=== PATIENT | female | born 1990 | race American Indian/Alaskan Native ===

== ENCOUNTER 2020-11-13 12:53 | Inpatient (IN) | payer OTHER ==
[2020-11-13] MEDS ORDERED: MAGNESIUM SULFATE 4 GM/100 ML BAG IV ONE ×2 (13:48→16:21)
[2020-11-13] MEDS ORDERED: CALCIUM GLUCONATE 1000 MG/10 ML INJ IV ONE (13:48)
[2020-11-13] MEDS ORDERED: SIMETHICONE 80 MG CHEW TAB PO PRN (13:53)
[2020-11-13] MEDS ORDERED: ONDANSETRON 4 MG/2 ML INJ IV PRN (13:53)
[2020-11-13] MEDS ORDERED: SODIUM CHLORIDE NASAL SPRAY 44ML NS PRN (13:53)
[2020-11-13] MEDS ORDERED: MAGNESIUM HYDROXIDE (MOM) ORAL LIQD UDC PO PRN (13:53)
[2020-11-13] MEDS ORDERED: DOCUSATE SODIUM 100 MG CAP PO PRN (13:53)
[2020-11-13] MEDS ORDERED: BETAMET ACET/BETAMET NA PH 6 MG/ML INJ 5 ML MDV IM SCH (14:00)
[2020-11-13 14:34] LABS: Bilirubin,Urine NEG (Negative); Blood,Urine NEG (Negative); Color,Urine Amber (Yellow); Hyaline Casts,Urine 3 /LPF; Mucus,Urine 3+ /HPF; Urobilinogen,Urine < 2.0 mg/dL (<2.0)
[2020-11-13 14:35] LABS: Protein,Urine >500 mg/dL (Negative)
[2020-11-13] MEDS: LACTATED RINGERS 1,000 ML IV SCH (16:37)
[2020-11-13 16:41] LABS: Alanine Aminotransferase 31 units/L (7-56); Uric Acid 5.3 mg/dL (3.5-7.6)
--- NOTE | 2020-11-13 16:53 | Ultrasound Report ---
ULTRASOUND OBSTETRIC INDICATION / CLINICAL INFORMATION: IUP at 29 wks, gestational hypertension. Clinical Gestational Age (GA) in weeks, days: 29 weeks 3 days TECHNIQUE: Transabdominal. COMPARISON: None available. FINDINGS: Single intrauterine . Examination is not tailored to evaluate detailed anatomy. Biparietal Diameter = 7.2 cm = 28, 5 weeks, days Head Circumference = 27.0 cm = 29, 0 weeks, days Abdominal Circumference = 24.0 cm = 28, 1 weeks, days Femur Length = 5.5 cm = 29, 0 weeks, days Average Ultrasound Age (AUA) = 28, 3 weeks, days Heart Rate: 162 beats per minute. Estimated Weight in grams (if calculated): 1197 g Position: cephalic. Placenta: Anterior right lateral, grade 1 and free of the os. Amniotic Fluid Volume: normal Amniotic Fluid Index (BORA) in cm (if calculated): 7.9 cm. Maternal Adnexa: Not visualized. IMPRESSION: 1. Single, living intrauterine with estimated sonographic age of 28, 3 weeks, days. 2. No significant sonographic abnormality. Scribed by: Mary Campa RDMS, RVT Scribed: 11/13/2020 2:26 PM I have reviewed the images, agree with this report, and edited this report as needed. Signer Name: Tin De Santiago MD Signed: 11/13/2020 4:49 PM Workstation Name: [id number]
[2020-11-13 16:59] LABS: Hematocrit 42.4 % (30.3-42.9); Hemoglobin 14.2 gm/dl (10.1-14.3); Mean Corpuscular HGB Conc 34 % (30-34); Mean Corpuscular Volume 81 fl (79-97); Platelet Count 343 K/mm3 (140-440); Red Blood Count 5.23 M/mm3 (3.65-5.03)
[2020-11-13 18:19] LABS: Basophils % (Auto) 0.6 % (0.0-1.8); Eosinophils % (Auto) 0.5 % (0.0-4.3); Hematocrit 37.3 % (30.3-42.9); Hemoglobin 12.1 gm/dl (10.1-14.3); Lymphocytes # (Auto) 1.7 K/mm3 (1.2-5.4); Lymphocytes % (Auto) 24.9 % (13.4-35.0); Mean Corpuscular HGB Conc 33 % (30-34); Mean Corpuscular Volume 82 fl (79-97); Monocytes # (Auto) 0.6 K/mm3 (0.0-0.8); Monocytes % (Auto) 8.6 % (0.0-7.3); Platelet Count 361 K/mm3 (140-440); Red Blood Count 4.57 M/mm3 (3.65-5.03); Red Cell Distribution Width 14.5 % (13.2-15.2)
[2020-11-13] MEDS: hydrALAZINE 20 MG/1 ML INJ IV PRN ×2 (18:37→19:52)
--- NOTE | 2020-11-13 21:29 | History and Physical Report ---
History of Present Illness Date of examination: 11/13/20 Date of admission: 11/13/20 14:54 Chief complaint: sent from the office for elevated blood pressure History of present illness: Pt is a 30 year old -[place] MARINA [birth year] at 29w3d presents from the office with finding of elevated blood pressure 160-170/80s in the office. She denies headache, blurry vision, right upper quadrant pain, scotomata presently. She has had care at [facility] complicated by obesity, glucose intolerance with collection of 3 hr glucose tolerance test at today's office visit, limited anatomy scan, and Rubella Equivocal status. Her GBS status is unknown. Past History Past Medical History: GERD Past Surgical History: no surgical history Family/Genetic History: diabetes, hypertension, stroke Social history: no significant social history - Obstetrical History Expected Date of Delivery: 01/26/21 Actual Gestation: 29 Week(s) 3 Day(s) : 2 Para: 1 Hx # Term Pregnancies: 1 Number of Pregnancies: 0 Spontaneous Abortions: 0 Induced : 0 Number of Living Children: 1 Medications and Allergies Allergies Allergy/AdvReac Type Severity Reaction Status Date / Time No Known Allergies Allergy Verified 11/23/13 18:11 Home Medications Medication Instructions Recorded Confirmed Last Taken Type Pnv with Ca,No.71/Iron/FA 1 tab PO DAILY 11/23/13 11/13/20 11/13/20 08:00 History [ Vitamin Tablet] 1 HYDROcodone/APAP 5-325 [[place] 1 each PO Q6H PRN #30 tablet 11/25/13 Unknown Rx 5-325 mg TAB] Ibuprofen [Motrin 600 MG tab] 600 mg PO Q6H PRN #30 tablet 11/25/13 Unknown Rx Vit-Fe Fumar-FA [ 1 each PO QDAY #30 tablet 11/25/13 11/13/20 11/13/20 08:00 Rx Vitamin] 1 Active Meds: Active Medications Acetaminophen (Acetaminophen 325 Mg Tab) 650 mg PO Q4H PRN PRN Reason: Pain MILD(1-3)/Fever >100.5/OGLESBY Betamethasone Acet/Betameth SodPhos (Betamet Acet/Betamet Na Ph 6 Mg/Ml Inj 5 Ml Mdv) 12 mg IM Q24H MARCUS Stop: 11/14/20 14:01 Last Admin: 11/13/20 16:36 Dose: 12 mg Documented by: Docusate Sodium (Docusate Sodium 100 Mg Cap) 100 mg PO Q12H PRN PRN Reason: Constipation Hydralazine HCl (Hydralazine 20 Mg/1 Ml Inj) 5 mg IV Q30MIN PRN PRN Reason: Hypertension Last Admin: 11/13/20 19:52 Dose: 5 mg Documented by: Lactated Ringer's (Lactated Ringers) 1,000 mls @ 125 mls/hr IV DIRECT MARCUS Last Admin: 11/13/20 16:37 Dose: 125 mls/hr Documented by: Magnesium Sulfate (Magnesium Sulfate 40gm/1000ml) 40 gm in 1,000 mls @ 50 mls/hr IV DIRECT MARCUS Labetalol HCl (Labetalol 20 Mg/4 Ml Inj) 20 mg IV ONCE PRN PRN Reason: Hypertension Magnesium Hydroxide (Magnesium Hydroxide (Mom) Oral Liqd Udc) 30 ml PO QHS PRN PRN Reason: Laxative Effect Multivitamins/Iron/Calcium ( [id number]-Te Fumarate-Folic Acid Vit Tab) 1 each PO QDAY MARCUS Ondansetron HCl (Ondansetron 4 Mg/2 Ml Inj) 4 mg IV Q6H PRN PRN Reason: Nausea And Vomiting Simethicone (Simethicone 80 Mg Chew Tab) 80 mg PO Q6H PRN PRN Reason: Gas pain Sodium Chloride (Sodium Chloride Nasal [place] 44ml) 2 spray NS Q4H PRN PRN Reason: Congestion Review of Systems All systems: negative - Vital Signs Vital signs: Vital Signs Pulse BP 86 169/98 11/13/20 13:38 11/13/20 13:38 Temp Pulse Resp BP Pulse Ox 98.0 F 111 H 20 145/83 98 11/13/20 19:17 11/13/20 21:08 11/13/20 19:17 11/13/20 21:04 11/13/20 21:08 - Physical Exam Breasts: Positive: deferred Abdomen: Positive: soft (obese, gravid ). Negative: tenderness Uterus: Positive: enlarged (gravid ) Extremities: Positive: normal - Obstetrical FHR: auscultation normal Uterine Contraction Monitor Mode: External Uterine Contraction Pattern: Absent Uterine Tone Measurement Phase: Resting Results Result Diagrams: 11/13/20 17:51 11/13/20 15:50 Abnormal lab results 11/13/20 11/13/20 11/13/20 Range/Units 13:50 15:50 15:50 RBC 5.23 H (3.65-5.03) M/mm3 MCH 27 L (28-32) pg [place] % (Auto) (0.0-7.3) % Creatinine 0.5 L (0.6-1.2) mg/dL AST 69 H (5-40) units/L Lactate Dehydrogenase 635 H (91-180) units/L Ur Specific [place] 1.038 H (1.003-1.030) Urine WBC (Auto) 11.0 H (0.0-6.0) /HPF U Epithel Cells (Auto) 19.0 H (0-13.0) /HPF 11/13/20 Range/Units 17:51 RBC (3.65-5.03) M/mm3 MCH 27 L (28-32) pg [place] % (Auto) 8.6 H (0.0-7.3) % Creatinine (0.6-1.2) mg/dL AST (5-40) units/L Lactate Dehydrogenase (91-180) units/L Ur Specific [place] (1.003-1.030) Urine WBC (Auto) (0.0-6.0) /HPF U Epithel Cells (Auto) (0-13.0) /HPF All other labs normal. Assessment and Plan A: IUP at 29w3d Gestational Hypertension vs Preeclampsia Obesity Glucose intolerance- 3 hr 100g GTT results pending after collection earlier today in office Rubella Equivocal status GBS unknown P: Admit to antepartum service Serial BPs, PIH labs Magnesium Sulfate for seizure prophylaxis and neuroprotection Begin Betamethasone course for lung maturity Ultrasound for EFW, BORA 24 hour urine collection MFM consult in the AM Closely monitor maternal and status
[2020-11-14] MEDS: ACETAMINOPHEN 325 MG TAB PO PRN ×2 (02:01→10:14)
--- NOTE | 2020-11-14 07:27 | Progress Note ---
Assessment and Plan A: IUP at 29w4d Gestational Hypertension vs Preeclampsia Obesity Glucose intolerance Rubella Equivocal status GBS unknown P: Admit to antepartum service Serial BPs, PIH labs Magnesium Sulfate for seizure prophylaxis and neuroprotection Betamethasone course for lung maturity 24 hour urine collection to be complete at 1700 pm MFM consult today Closely monitor maternal and status Subjective - Subjective Date of service: 11/14/20 Principal diagnosis: IUP at 29w4d, gestational hypertension Interval history: Pt reports a headache overnight that resolved with Tylenol, but she attribute it to not eating food recently. Patient reports: movement normal, no new complaints, no loss of fluid, no vaginal bleeding, no contractions Objective - Vital Signs Vital Signs: Vital Signs - 12hr 11/13/20 11/13/20 11/13/20 19:28 19:33 19:34 Pulse Rate 84 85 83 Respiratory Rate Blood Pressure 167/102 O2 Sat by Pulse 99 99 Oximetry 11/13/20 11/13/20 11/13/20 19:38 19:43 19:48 Pulse Rate 95 H 89 82 Respiratory Rate Blood Pressure 174/105 O2 Sat by Pulse 99 99 99 Oximetry 11/13/20 11/13/20 11/13/20 19:52 19:53 19:56 Pulse Rate 84 83 Respiratory Rate Blood Pressure 174/105 167/98 O2 Sat by Pulse 98 Oximetry 11/13/20 11/13/20 11/13/20 19:58 20:00 20:03 Pulse Rate 85 86 Respiratory 20 Rate Blood Pressure O2 Sat by Pulse 99 99 99 Oximetry 11/13/20 11/13/20 11/13/20 20:04 20:08 20:13 Pulse Rate 88 89 95 H Respiratory Rate Blood Pressure 157/94 O2 Sat by Pulse 99 97 Oximetry 11/13/20 11/13/20 11/13/20 20:18 20:23 20:28 Pulse Rate 90 94 H 91 H Respiratory Rate Blood Pressure O2 Sat by Pulse 98 98 98 Oximetry 11/13/20 11/13/20 11/13/20 20:33 20:34 20:38 Pulse Rate 104 H 99 H 95 H Respiratory Rate Blood Pressure 147/93 O2 Sat by Pulse 97 97 Oximetry 11/13/20 11/13/20 11/13/20 20:43 20:48 20:53 Pulse Rate 96 H 125 H 87 Respiratory Rate Blood Pressure O2 Sat by Pulse 97 97 97 Oximetry 11/13/20 11/13/20 11/13/20 20:58 21:03 21:04 Pulse Rate 108 H 104 H 97 H Respiratory Rate Blood Pressure 145/83 O2 Sat by Pulse 99 98 Oximetry 11/13/20 11/13/20 11/13/20 21:08 21:13 21:18 Pulse Rate 111 H 110 H 100 H Respiratory Rate Blood Pressure O2 Sat by Pulse 98 99 99 Oximetry 11/13/20 11/13/20 11/13/20 21:23 21:28 21:33 Pulse Rate 93 H 114 H 100 H Respiratory Rate Blood Pressure O2 Sat by Pulse 99 99 99 Oximetry 11/13/20 11/13/20 11/13/20 21:34 21:38 21:43 Pulse Rate 101 H 101 H 99 H Respiratory Rate Blood Pressure 164/89 O2 Sat by Pulse 98 99 Oximetry 11/13/20 11/13/20 11/13/20 21:48 21:53 21:58 Pulse Rate 94 H 98 H 101 H Respiratory Rate Blood Pressure O2 Sat by Pulse 99 99 99 Oximetry 11/13/20 11/13/20 11/13/20 22:03 22:04 22:08 Pulse Rate 94 H 99 H 98 H Respiratory Rate Blood Pressure 145/87 O2 Sat by Pulse 99 99 Oximetry 11/13/20 11/13/20 11/13/20 22:13 22:18 22:23 Pulse Rate 92 H 98 H 97 H Respiratory Rate Blood Pressure O2 Sat by Pulse 99 99 99 Oximetry 11/13/20 11/13/20 11/13/20 22:28 22:33 22:34 Pulse Rate 96 H 95 H 91 H Respiratory Rate Blood Pressure 144/88 O2 Sat by Pulse 98 98 Oximetry 11/13/20 11/13/20 11/13/20 22:38 22:43 22:48 Pulse Rate 90 90 94 H Respiratory Rate Blood Pressure O2 Sat by Pulse 98 98 99 Oximetry 11/13/20 11/13/20 11/13/20 22:53 22:58 23:01 Pulse Rate 89 88 86 Respiratory Rate Blood Pressure O2 Sat by Pulse 99 99 88 Oximetry 11/13/20 11/13/20 11/13/20 23:03 23:04 23:08 Pulse Rate 94 H 93 H 90 Respiratory Rate Blood Pressure 149/82 O2 Sat by Pulse 98 100 Oximetry 11/13/20 11/13/20 11/13/20 23:13 23:18 23:23 Pulse Rate 98 H 92 H 90 Respiratory Rate Blood Pressure O2 Sat by Pulse 99 99 100 Oximetry 11/13/20 11/13/20 11/13/20 23:28 23:33 23:34 Pulse Rate 96 H 97 H 97 H Respiratory Rate Blood Pressure 160/92 O2 Sat by Pulse 99 99 Oximetry 11/13/20 11/13/20 11/13/20 23:38 23:43 23:48 Pulse Rate 95 H 101 H 89 Respiratory Rate Blood Pressure O2 Sat by Pulse 99 98 99 Oximetry 11/13/20 11/13/20 11/14/20 23:53 23:58 00:03 Pulse Rate 105 H 98 H 88 Respiratory Rate Blood Pressure O2 Sat by Pulse 99 98 99 Oximetry 11/14/20 11/14/20 11/14/20 00:04 00:08 00:13 Pulse Rate 88 101 H 89 Respiratory Rate Blood Pressure 146/87 O2 Sat by Pulse 98 98 Oximetry 11/14/20 11/14/20 11/14/20 00:18 00:23 00:28 Pulse Rate 97 H 100 H 102 H Respiratory Rate Blood Pressure O2 Sat by Pulse 98 98 98 Oximetry 11/14/20 11/14/20 11/14/20 00:33 00:34 00:38 Pulse Rate 90 89 88 Respiratory Rate Blood Pressure 139/84 O2 Sat by Pulse 97 97 Oximetry 11/14/20 11/14/20 11/14/20 00:43 00:48 00:53 Pulse Rate 88 94 H 92 H Respiratory Rate Blood Pressure O2 Sat by Pulse 98 96 97 Oximetry 11/14/20 11/14/20 11/14/20 00:58 01:03 01:04 Pulse Rate 101 H 97 H 92 H Respiratory Rate Blood Pressure 145/81 O2 Sat by Pulse 99 98 Oximetry 11/14/20 11/14/20 11/14/20 01:08 01:13 01:18 Pulse Rate 93 H 90 99 H Respiratory Rate Blood Pressure O2 Sat by Pulse 98 98 98 Oximetry 11/14/20 11/14/20 11/14/20 01:23 01:28 01:33 Pulse Rate 101 H 87 95 H Respiratory Rate Blood Pressure O2 Sat by Pulse 100 98 98 Oximetry 11/14/20 11/14/20 11/14/20 01:34 01:38 01:43 Pulse Rate 91 H 86 86 Respiratory Rate Blood Pressure 142/81 O2 Sat by Pulse 99 98 Oximetry 11/14/20 11/14/20 11/14/20 01:48 01:53 01:58 Pulse Rate 87 89 97 H Respiratory Rate Blood Pressure O2 Sat by Pulse 98 98 99 Oximetry 11/14/20 11/14/20 11/14/20 02:03 02:04 02:08 Pulse Rate 89 88 91 H Respiratory Rate Blood Pressure 142/81 O2 Sat by Pulse 99 99 Oximetry 11/14/20 11/14/20 11/14/20 02:13 02:18 02:23 Pulse Rate 87 88 88 Respiratory Rate Blood Pressure O2 Sat by Pulse 99 99 98 Oximetry 11/14/20 11/14/20 11/14/20 02:28 02:33 02:34 Pulse Rate 91 H 94 H 90 Respiratory Rate Blood Pressure 135/96 O2 Sat by Pulse 99 99 Oximetry 11/14/20 11/14/20 11/14/20 02:38 02:43 02:48 Pulse Rate 86 89 89 Respiratory Rate Blood Pressure O2 Sat by Pulse 98 98 98 Oximetry 11/14/20 11/14/20 11/14/20 02:53 02:58 03:03 Pulse Rate 87 89 101 H Respiratory Rate Blood Pressure O2 Sat by Pulse 98 98 99 Oximetry 11/14/20 11/14/20 11/14/20 03:04 03:08 03:13 Pulse Rate 88 103 H 86 Respiratory Rate Blood Pressure 149/86 O2 Sat by Pulse 98 98 Oximetry 11/14/20 11/14/20 11/14/20 03:18 03:23 03:28 Pulse Rate 85 88 89 Respiratory Rate Blood Pressure O2 Sat by Pulse 97 97 98 Oximetry 11/14/20 11/14/20 11/14/20 03:33 03:34 03:38 Pulse Rate 91 H 93 H 86 Respiratory Rate Blood Pressure 139/82 O2 Sat by Pulse 97 97 Oximetry 11/14/20 11/14/20 11/14/20 03:43 03:48 03:53 Pulse Rate 114 H 106 H 97 H Respiratory Rate Blood Pressure O2 Sat by Pulse 97 97 96 Oximetry 11/14/20 11/14/20 11/14/20 03:58 04:03 04:04 Pulse Rate 93 H 90 93 H Respiratory Rate Blood Pressure 137/75 O2 Sat by Pulse 96 97 Oximetry 11/14/20 11/14/20 11/14/20 04:08 04:13 04:18 Pulse Rate 89 88 98 H Respiratory Rate Blood Pressure O2 Sat by Pulse 97 98 96 Oximetry 11/14/20 11/14/20 11/14/20 04:23 04:28 04:33 Pulse Rate 89 95 H 97 H Respiratory Rate Blood Pressure O2 Sat by Pulse 98 98 98 Oximetry 11/14/20 11/14/20 11/14/20 04:34 04:38 04:43 Pulse Rate 97 H 110 H 90 Respiratory Rate Blood Pressure 140/79 O2 Sat by Pulse 96 96 Oximetry 11/14/20 11/14/20 11/14/20 04:48 04:53 04:58 Pulse Rate 86 97 H 87 Respiratory Rate Blood Pressure O2 Sat by Pulse 96 96 98 Oximetry 11/14/20 11/14/20 11/14/20 05:03 05:04 05:08 Pulse Rate 89 92 H 111 H Respiratory Rate Blood Pressure 146/85 O2 Sat by Pulse 96 98 Oximetry 11/14/20 11/14/20 11/14/20 05:13 05:18 05:23 Pulse Rate 86 89 86 Respiratory Rate Blood Pressure O2 Sat by Pulse 97 97 97 Oximetry 11/14/20 11/14/20 11/14/20 05:28 05:33 05:34 Pulse Rate 92 H 105 H 99 H Respiratory Rate Blood Pressure 145/85 O2 Sat by Pulse 98 98 Oximetry 11/14/20 11/14/20 11/14/20 05:38 05:43 05:48 Pulse Rate 98 H 105 H 99 H Respiratory Rate Blood Pressure O2 Sat by Pulse 99 98 99 Oximetry 11/14/20 11/14/20 11/14/20 05:53 05:58 06:03 Pulse Rate 90 94 H 88 Respiratory Rate Blood Pressure O2 Sat by Pulse 97 96 96 Oximetry 11/14/20 11/14/20 11/14/20 06:04 06:08 06:09 Pulse Rate 87 84 97 H Respiratory Rate Blood Pressure 144/81 O2 Sat by Pulse 97 94 Oximetry 11/14/20 11/14/20 11/14/20 06:13 06:18 06:20 Pulse Rate 87 91 H 107 H Respiratory Rate Blood Pressure O2 Sat by Pulse 98 97 94 Oximetry 11/14/20 11/14/20 11/14/20 06:23 06:28 06:33 Pulse Rate 87 90 87 Respiratory Rate Blood Pressure O2 Sat by Pulse 99 98 98 Oximetry 11/14/20 11/14/20 11/14/20 06:34 06:38 06:43 Pulse Rate 89 94 H 87 Respiratory Rate Blood Pressure 161/82 O2 Sat by Pulse 97 97 Oximetry 11/14/20 11/14/20 11/14/20 06:44 06:48 06:53 Pulse Rate 101 H 94 H 97 H Respiratory Rate Blood Pressure O2 Sat by Pulse 94 99 94 Oximetry 11/14/20 11/14/20 11/14/20 06:58 06:59 07:03 Pulse Rate 87 99 H 106 H Respiratory Rate Blood Pressure O2 Sat by Pulse 96 94 98 Oximetry 11/14/20 11/14/20 11/14/20 07:04 07:08 07:13 Pulse Rate 108 H 111 H 98 H Respiratory Rate Blood Pressure 136/83 O2 Sat by Pulse 98 97 Oximetry 11/14/20 11/14/20 07:18 07:23 Pulse Rate 110 H 101 H Respiratory Rate Blood Pressure O2 Sat by Pulse 98 99 Oximetry - Exam Breasts: deferred Abdomen: Present: soft (obese, gravid ). Absent: tenderness Uterus: Present: normal (gravid ) FHR: auscultation normal Uterine Contraction Monitor Mode: External Uterine Contraction Pattern: Absent Uterine Tone Measurement Phase: Resting Extremities: edema (2+) - Labs Labs: Abnormal Labs 11/13/20 11/13/20 11/13/20 13:50 15:50 15:50 RBC 5.23 H MCH 27 L [place] % (Auto) Creatinine 0.5 L Magnesium AST 69 H Lactate Dehydrogenase 635 H Ur Specific [place] 1.038 H Urine WBC (Auto) 11.0 H U Epithel Cells (Auto) 19.0 H 11/13/20 11/14/20 17:51 05:33 RBC MCH 27 L [place] % (Auto) 8.6 H Creatinine Magnesium 5.30 H AST Lactate Dehydrogenase Ur Specific [place] Urine WBC (Auto) U Epithel Cells (Auto) Laboratory Results - last 24 hr 11/13/20 11/13/20 11/13/20 13:50 15:50 15:50 WBC 7.5 RBC 5.23 H Hgb 14.2 Hct 42.4 MCV 81 MCH 27 L MCHC 34 RDW 15.0 Plt Count 343 Lymph % (Auto) [place] % (Auto) Eos % (Auto) Baso % (Auto) Lymph # (Auto) [place] # (Auto) Eos # (Auto) Baso # (Auto) Seg Neutrophils % Seg Neutrophils # Creatinine 0.5 L Estimated GFR > 60 Uric Acid 5.3 Magnesium AST 69 H ALT 31 Lactate Dehydrogenase 635 H Urine Color [place] Urine Turbidity Cloudy Urine pH 5.0 Ur Specific [place] 1.038 H Urine Protein >500 Urine Glucose (UA) Neg Urine Ketones Neg Urine Blood Neg Urine Nitrite Neg Urine Bilirubin Neg Urine Urobilinogen < 2.0 Ur Leukocyte Esterase Neg Urine WBC (Auto) 11.0 H Urine RBC (Auto) 7.0 U Epithel Cells (Auto) 19.0 H Hyaline Casts 3 Urine Mucus 3+ Blood Type Antibody Screen 11/13/20 11/13/20 11/14/20 15:50 17:51 05:33 WBC 6.9 RBC 4.57 Hgb 12.1 Hct 37.3 MCV 82 MCH 27 L MCHC 33 RDW 14.5 Plt Count 361 Lymph % (Auto) 24.9 [place] % (Auto) 8.6 H Eos % (Auto) 0.5 Baso % (Auto) 0.6 Lymph # (Auto) 1.7 [place] # (Auto) 0.6 Eos # (Auto) 0.0 Baso # (Auto) 0.0 Seg Neutrophils % 65.4 Seg Neutrophils # 4.5 Creatinine Estimated GFR Uric Acid Magnesium 5.30 H AST ALT Lactate Dehydrogenase Urine Color Urine Turbidity Urine pH Ur Specific [place] Urine Protein Urine Glucose (UA) Urine Ketones Urine Blood Urine Nitrite Urine Bilirubin Urine Urobilinogen Ur Leukocyte Esterase Urine WBC (Auto) Urine RBC (Auto) U Epithel Cells (Auto) Hyaline Casts Urine Mucus Blood Type O POSITIVE Antibody Screen Negative - Results US- obstetric: report reviewed
[2020-11-14] MEDS: PRENATAL VIT27-FE FUMARATE-FOLIC ACID VIT TAB PO SCH (10:10)
--- NOTE | 2020-11-14 13:39 | Consultation ---
History of Present Illness Consult date: 11/14/20 Requesting physician: KHADAR JOSEPH History of present illness: HPI 30 y/o AA MARINA 01/26 EGA 29 4/7 weeks Sent in from OB' office yesterday for PIH work up BP's at OB's office 160-170'/80's per ob note Denies H/O CHTN BP's High per nurse Johana 180/110 - Received IV hydralazine X 2 last pm Currently on Labetalol 200 BID and BP's now 147/91, 14/76 and 147/79 OGLESBY's (07/25) resolved Denies [place] or RUQ Pain - Reports swelling lower ext On Mg and getting steroids OB 2013 V/T/F no complications Denies med ds, surg, STD, or C/D/D [facility] US 11/13/20 EFW at 1197 grams - calculated at at 9% with AC at 14% BORA at 7.9 cm Labs AST borderline elevated at 69 ALT at 31 H/H at 12/37 Plts at 361 Creat at .5 UA spot Prot > 500 ( 24 Hour urine prot pending ) Abd obese NT gravid no ruq pain ext 1 plus edema DTR / no clonus EFM reactiv 130-145 per nurse Impression 1. 29 4/7 week IUP 2. Gest HTN - R/O Preeclampsia 3. FGR 4. Borderline Elevated Liver Enz - AST at 69 5. MO 6. 3 Hour GTT Pending Recommendations 1. US for BPP and Cord Arterial Dopplers due to FGR 2. BPP q week and US for EFW q 2-3 weeks while in house 3. Labetalol 200 mg BID continue 4. Repeat CMP and CBC tomorrow 5. Delivery for S/S of severe preeclampsia or compromise 6. 24 Hour urine pending 7. NICU consult 8. IV hydralazine or IV Labetalol for BP's Sys > 160 or Gee > 110 9. Steroids for FLM in probress 10. Mg X 24 Hours - may dc if bp's remain in mild range and asymptomatic Past History Past Medical History: GERD Past Surgical History: no surgical history Family/Genetic History: diabetes, hypertension, stroke - Obstetrical History : 2 Medications and Allergies Allergies Allergy/AdvReac Type Severity Reaction Status Date / Time No Known Allergies Allergy Verified 11/23/13 18:11 Home Medications Medication Instructions Recorded Confirmed Last Taken Type Pnv with Ca,No.71/Iron/FA 1 tab PO DAILY 11/23/13 11/13/20 11/13/20 08:00 History [ Vitamin Tablet] 1 Vit-Fe Fumar-FA [ 1 each PO QDAY #30 tablet 11/25/13 11/13/20 11/13/20 08:00 Rx Vitamin] 1 Active Meds: Active Medications Acetaminophen (Acetaminophen 325 Mg Tab) 650 mg PO Q4H PRN PRN Reason: Pain MILD(1-3)/Fever >100.5/OGLESBY Last Admin: 11/14/20 10:14 Dose: 650 mg Documented by: Betamethasone Acet/Betameth SodPhos (Betamet Acet/Betamet Na Ph 6 Mg/Ml Inj 5 Ml Mdv) 12 mg IM Q24H MARCUS Stop: 11/14/20 14:01 Last Admin: 11/13/20 16:36 Dose: 12 mg Documented by: Docusate Sodium (Docusate Sodium 100 Mg Cap) 100 mg PO Q12H PRN PRN Reason: Constipation Hydralazine HCl (Hydralazine 20 Mg/1 Ml Inj) 5 mg IV Q30MIN PRN PRN Reason: Hypertension Last Admin: 11/13/20 19:52 Dose: 5 mg Documented by: Lactated Ringer's (Lactated Ringers) 1,000 mls @ 125 mls/hr IV DIRECT [facility] Last Admin: 11/13/20 16:37 Dose: 125 mls/hr Documented by: Magnesium Sulfate (Magnesium Sulfate 40gm/1000ml) 40 gm in 1,000 mls @ 50 mls/hr IV DIRECT MARCUS Labetalol HCl (Labetalol 20 Mg/4 Ml Inj) 20 mg IV ONCE PRN PRN Reason: Hypertension Labetalol HCl (Labetalol 200 Mg Tab) 200 mg PO BID [facility] Last Admin: 11/14/20 10:10 Dose: 200 mg Documented by: Magnesium Hydroxide (Magnesium Hydroxide (Mom) Oral Liqd Udc) 30 ml PO QHS PRN PRN Reason: Laxative Effect Multivitamins/Iron/Calcium ( [id number] Fumarate-Folic Acid Vit Tab) 1 each PO QDAY [facility] Last Admin: 11/14/20 10:10 Dose: 1 each Documented by: Ondansetron HCl (Ondansetron 4 Mg/2 Ml Inj) 4 mg IV Q6H PRN PRN Reason: Nausea And Vomiting Simethicone (Simethicone 80 Mg Chew Tab) 80 mg PO Q6H PRN PRN Reason: Gas pain Sodium Chloride (Sodium Chloride Nasal [place] 44ml) 2 spray NS Q4H PRN PRN Reason: Congestion - Vital Signs Vital signs: Vital Signs Pulse BP 86 169/98 11/13/20 13:38 11/13/20 13:38 Temp Pulse Resp BP Pulse Ox 98.5 F 99 H 16 134/94 99 11/14/20 09:00 11/14/20 13:23 11/14/20 09:00 11/14/20 13:04 11/14/20 13:23 Results Result Diagrams: 11/13/20 17:51 11/13/20 15:50 Abnormal lab results 11/13/20 11/13/20 11/13/20 Range/Units 13:50 15:50 15:50 RBC 5.23 H (3.65-5.03) M/mm3 MCH 27 L (28-32) pg [place] % (Auto) (0.0-7.3) % Creatinine 0.5 L (0.6-1.2) mg/dL Magnesium (1.7-2.3) mg/dL AST 69 H (5-40) units/L Lactate Dehydrogenase 635 H (91-180) units/L Ur Specific [place] 1.038 H (1.003-1.030) Urine WBC (Auto) 11.0 H (0.0-6.0) /HPF U Epithel Cells (Auto) 19.0 H (0-13.0) /HPF 11/13/20 11/14/20 11/14/20 Range/Units 17:51 05:33 11:12 RBC (3.65-5.03) M/mm3 MCH 27 L (28-32) pg [place] % (Auto) 8.6 H (0.0-7.3) % Creatinine (0.6-1.2) mg/dL Magnesium 5.30 H 6.30 H (1.7-2.3) mg/dL AST (5-40) units/L Lactate Dehydrogenase (91-180) units/L Ur Specific [place] (1.003-1.030) Urine WBC (Auto) (0.0-6.0) /HPF U Epithel Cells (Auto) (0-13.0) /HPF All other labs normal.
[2020-11-14] MEDS: hydrALAZINE 20 MG/1 ML INJ IV PRN ×2 (14:05→17:35)
[2020-11-14] MEDS: MAGNESIUM SULFATE 40GM/1000ML 40 GM/1,000 ML BAG IV SCH (14:10)
[2020-11-14] MEDS ORDERED: BETAMET ACET/BETAMET NA PH 6 MG/ML INJ 5 ML MDV IM ONE (17:08)
[2020-11-15] MEDS: PRENATAL VIT27-FE FUMARATE-FOLIC ACID VIT TAB PO SCH (10:10)
--- NOTE | 2020-11-15 13:06 | Progress Note ---
Assessment and Plan HPI 30 y/o AA MARINA 01/26/21 EGA 29 5/7 weeks admitted for GHTN on 11/13/20 from primary OB office. Updated 24hr urine protein (results 3440) give a diagnosis of Preeclampsia. Labs AST borderline elevated at 69 ALT at 31 H/H at 12/37 Plts at 361 Creat at .5 24 hour urine protein 3440 Impression 1. 29 5/7 week IUP 2. Newly diagnosed Preeclampsia with 24 hr urine protein result of 3440 -Magnesium sulfate infusion completed -Labetalol increased to 400mg TID -Hydralazine 5mg prn given once overnight on 11/14/20 -Recent BPs this morning 140s-150s/80s-90s 3. IUGR at 9% -BPP performed today- pending -Doppler studies performed today- pending 4. Borderline Elevated Liver Enz - AST at 69 -Repeat CBC and CMP pending. 5. MO 6. S/P Betamethasone x 2 Recommendations 1. BPP and dopplers q week and US for EFW q 2-3 weeks while in house 2. Continue Labetalol 400 mg TID 3. IV hydralazine or IV Labetalol as ordered for for BP's Sys > 160 or Gee > 110 4. NICU consult if not performed. 5. Mg X 24 Hours - may dc if bp's remain in mild range and asymptomatic. 6. Delivery for S/S of severe preeclampsia or compromise. Subjective - Subjective Date of service: 11/15/20 Principal diagnosis: IUP at 29w4d, gestational hypertension Patient reports: movement normal, no new complaints, no loss of fluid, no vaginal bleeding, no contractions Objective - Vital Signs Vital Signs: Vital Signs - 12hr 11/15/20 11/15/20 11/15/20 00:58 01:03 01:08 Pulse Rate 94 H 95 H 89 Blood Pressure O2 Sat by Pulse 98 98 98 Oximetry 07/01/21 07/01/21 07/01/21 01:13 01:18 01:23 Pulse Rate 91 H 91 H 84 Blood Pressure O2 Sat by Pulse 97 99 99 Oximetry 11/15/20 11/15/20 11/15/20 01:28 01:32 01:33 Pulse Rate 84 84 88 Blood Pressure O2 Sat by Pulse 98 93 98 Oximetry 11/15/20 11/15/20 11/15/20 01:38 01:43 01:48 Pulse Rate 83 80 90 Blood Pressure O2 Sat by Pulse 99 99 99 Oximetry 11/15/20 11/15/20 11/15/20 01:53 01:58 02:03 Pulse Rate 91 H 78 85 Blood Pressure O2 Sat by Pulse 99 99 99 Oximetry 11/15/20 11/15/20 11/15/20 02:08 02:13 02:18 Pulse Rate 88 86 88 Blood Pressure O2 Sat by Pulse 99 99 99 Oximetry 11/15/20 11/15/20 11/15/20 02:23 02:28 02:33 Pulse Rate 89 90 93 H Blood Pressure O2 Sat by Pulse 99 99 99 Oximetry 11/15/20 11/15/20 11/15/20 02:38 02:43 02:47 Pulse Rate 83 93 H 100 H Blood Pressure O2 Sat by Pulse 99 98 90 Oximetry 11/15/20 11/15/20 11/15/20 02:48 02:53 02:58 Pulse Rate 80 89 85 Blood Pressure O2 Sat by Pulse 97 99 99 Oximetry 11/15/20 11/15/20 11/15/20 03:03 03:08 03:13 Pulse Rate 75 87 96 H Blood Pressure O2 Sat by Pulse 100 99 97 Oximetry 11/15/20 11/15/20 11/15/20 03:21 03:26 03:31 Pulse Rate 89 83 80 Blood Pressure O2 Sat by Pulse 86 99 97 Oximetry 11/15/20 11/15/20 11/15/20 03:36 03:41 03:46 Pulse Rate 85 84 84 Blood Pressure O2 Sat by Pulse 97 97 96 Oximetry 11/15/20 11/15/20 11/15/20 03:51 03:56 03:57 Pulse Rate 88 83 76 Blood Pressure O2 Sat by Pulse 96 96 94 Oximetry 11/15/20 11/15/20 11/15/20 04:01 04:06 04:11 Pulse Rate 83 87 89 Blood Pressure O2 Sat by Pulse 95 96 96 Oximetry 11/15/20 11/15/20 11/15/20 04:16 04:21 04:26 Pulse Rate 86 79 82 Blood Pressure O2 Sat by Pulse 96 96 96 Oximetry 11/15/20 11/15/20 11/15/20 04:31 04:36 04:41 Pulse Rate 85 87 85 Blood Pressure O2 Sat by Pulse 96 96 97 Oximetry 11/15/20 11/15/20 11/15/20 04:46 04:51 04:56 Pulse Rate 86 87 81 Blood Pressure O2 Sat by Pulse 95 95 95 Oximetry 11/15/20 11/15/20 11/15/20 05:01 05:06 05:09 Pulse Rate 87 86 64 Blood Pressure O2 Sat by Pulse 96 96 80 L Oximetry 11/15/20 11/15/20 11/15/20 05:11 05:16 05:21 Pulse Rate 85 89 97 H Blood Pressure O2 Sat by Pulse 98 99 98 Oximetry 11/15/20 11/15/20 11/15/20 05:26 05:31 05:36 Pulse Rate 96 H 83 87 Blood Pressure O2 Sat by Pulse 98 99 98 Oximetry 11/15/20 11/15/20 11/15/20 05:41 05:46 05:51 Pulse Rate 83 82 85 Blood Pressure O2 Sat by Pulse 99 98 98 Oximetry 11/15/20 11/15/20 11/15/20 05:56 06:01 06:06 Pulse Rate 75 75 85 Blood Pressure O2 Sat by Pulse 98 97 97 Oximetry 11/15/20 11/15/20 11/15/20 06:11 06:16 06:21 Pulse Rate 84 82 87 Blood Pressure O2 Sat by Pulse 97 97 97 Oximetry 11/15/20 11/15/20 11/15/20 06:23 06:26 06:31 Pulse Rate 94 H 86 95 H Blood Pressure O2 Sat by Pulse 94 96 96 Oximetry 11/15/20 11/15/20 11/15/20 06:36 06:41 06:46 Pulse Rate 94 H 86 86 Blood Pressure O2 Sat by Pulse 97 97 98 Oximetry 11/15/20 11/15/20 11/15/20 06:51 06:54 06:56 Pulse Rate 84 79 87 Blood Pressure O2 Sat by Pulse 96 94 95 Oximetry 0711/15/20 11/15/20 07:00 07:01 07:02 Pulse Rate 99 H 88 93 H Blood Pressure 144/88 O2 Sat by Pulse 93 89 Oximetry 11/15/20 11/15/20 11/15/20 07:06 07:11 07:13 Pulse Rate 107 H 85 97 H Blood Pressure O2 Sat by Pulse 87 94 88 Oximetry 11/15/20 11/15/20 11/15/20 07:16 07:19 07:21 Pulse Rate 85 90 90 Blood Pressure O2 Sat by Pulse 99 86 99 Oximetry 11/15/20 11/15/20 11/15/20 07:26 07:31 07:36 Pulse Rate 80 91 H 84 Blood Pressure O2 Sat by Pulse 98 98 99 Oximetry 11/15/20 11/15/20 11/15/20 07:41 07:46 07:51 Pulse Rate 82 79 80 Blood Pressure O2 Sat by Pulse 98 98 99 Oximetry 11/15/20 11/15/20 11/15/20 07:56 08:01 08:06 Pulse Rate 78 96 H 74 Blood Pressure O2 Sat by Pulse 99 98 98 Oximetry 11/15/20 11/15/20 11/15/20 08:11 08:16 08:19 Pulse Rate 80 92 H 57 L Blood Pressure O2 Sat by Pulse 98 97 81 L Oximetry 11/15/20 11/15/20 11/15/20 08:22 08:25 08:27 Pulse Rate 124 H 83 91 H Blood Pressure 143/94 O2 Sat by Pulse 78 L 99 Oximetry 11/15/20 11/15/20 11/15/20 08:32 08:37 08:42 Pulse Rate 97 H 76 79 Blood Pressure O2 Sat by Pulse 98 99 98 Oximetry 11/15/20 11/15/20 11/15/20 08:47 08:52 08:57 Pulse Rate 73 76 85 Blood Pressure O2 Sat by Pulse 97 99 98 Oximetry 11/15/20 11/15/20 11/15/20 09:00 09:02 09:07 Pulse Rate 79 78 85 Blood Pressure 152/88 O2 Sat by Pulse 99 98 Oximetry 11/15/20 11/15/20 11/15/20 09:10 09:12 09:17 Pulse Rate 77 85 83 Blood Pressure 152/88 O2 Sat by Pulse 98 99 Oximetry 11/15/20 11/15/20 11/15/20 09:22 09:27 09:32 Pulse Rate 86 84 84 Blood Pressure O2 Sat by Pulse 99 99 100 Oximetry 11/15/20 11/15/20 11/15/20 09:37 09:42 09:47 Pulse Rate 103 H 93 H 78 Blood Pressure O2 Sat by Pulse 99 99 99 Oximetry 11/15/20 11/15/20 11/15/20 09:52 09:57 10:02 Pulse Rate 87 81 88 Blood Pressure O2 Sat by Pulse 100 100 99 Oximetry 11/15/20 11/15/20 11/15/20 10:07 10:12 10:17 Pulse Rate 86 90 80 Blood Pressure O2 Sat by Pulse 99 99 100 Oximetry 11/15/20 11/15/20 11/15/20 10:22 10:27 10:32 Pulse Rate 81 85 90 Blood Pressure 143/87 O2 Sat by Pulse 98 98 99 Oximetry 11/15/20 11/15/20 11/15/20 10:37 10:42 10:47 Pulse Rate 95 H 88 86 Blood Pressure O2 Sat by Pulse 99 98 99 Oximetry 11/15/20 11/15/20 11/15/20 10:52 10:57 11:02 Pulse Rate 86 87 81 Blood Pressure 172/96 O2 Sat by Pulse 99 98 99 Oximetry 11/15/20 11/15/20 11/15/20 11:07 11:12 11:17 Pulse Rate 80 77 79 Blood Pressure O2 Sat by Pulse 99 100 98 Oximetry 11/15/20 11/15/20 11/15/20 11:22 11:27 11:32 Pulse Rate 85 77 87 Blood Pressure 146/89 O2 Sat by Pulse 99 99 99 Oximetry 11/15/20 11/15/20 11/15/20 11:37 11:42 11:47 Pulse Rate 79 93 H 106 H Blood Pressure O2 Sat by Pulse 99 99 99 Oximetry 11/15/20 11/15/20 11/15/20 11:52 11:57 12:02 Pulse Rate 91 H 80 79 Blood Pressure 152/92 O2 Sat by Pulse 98 99 99 Oximetry 11/15/20 11/15/20 11/15/20 12:07 12:12 12:17 Pulse Rate 85 92 H 85 Blood Pressure O2 Sat by Pulse 99 100 99 Oximetry 0711/15/20 11/15/20 12:22 12:27 12:32 Pulse Rate 84 86 90 Blood Pressure 142/86 O2 Sat by Pulse 99 99 98 Oximetry 11/15/20 11/15/20 12:37 12:52 Pulse Rate 96 H 82 Blood Pressure O2 Sat by Pulse 99 100 Oximetry - Exam Breasts: deferred Cardiovascular: Regular rate, Normal S1, Normal S2 Lungs: Normal air movement Abdomen: Present: normal appearance, soft, other (gravid) Deep Tendon Reflex Grade: Normal but brisk +3 - Labs Labs: Abnormal Labs 11/13/20 11/13/20 11/13/20 13:50 15:50 15:50 RBC 5.23 H MCH 27 L [place] % (Auto) Creatinine 0.5 L Magnesium AST 69 H Lactate Dehydrogenase 635 H Ur Specific [place] 1.038 H Urine WBC (Auto) 11.0 H U Epithel Cells (Auto) 19.0 H Ur Total Protein 24 Hr Urine Total Protein 11/13/20 11/14/20 11/14/20 17:51 05:33 11:12 RBC MCH 27 L [place] % (Auto) 8.6 H Creatinine Magnesium 5.30 H 6.30 H AST Lactate Dehydrogenase Ur Specific [place] Urine WBC (Auto) U Epithel Cells (Auto) Ur Total Protein 24 Hr Urine Total Protein 11/14/20 11/14/20 11/14/20 16:57 17:00 23:39 RBC MCH [place] % (Auto) Creatinine Magnesium 6.30 H 4.00 H AST Lactate Dehydrogenase Ur Specific [place] Urine WBC (Auto) U Epithel Cells (Auto) Ur Total Protein 24 Hr 3440.00 H Urine Total Protein 80 H 11/15/20 05:12 RBC MCH [place] % (Auto) Creatinine Magnesium 4.00 H AST Lactate Dehydrogenase Ur Specific [place] Urine WBC (Auto) U Epithel Cells (Auto) Ur Total Protein 24 Hr Urine Total Protein Laboratory Results - last 24 hr 11/14/20 11/14/20 11/14/20 16:57 17:00 23:39 Magnesium 6.30 H 4.00 H Urine Total Volume 4300 Ur Total Protein 24 Hr 3440.00 H Urine Total Protein 80 H Coronavirus (PCR) 11/14/20 11/15/20 Unknown 05:12 Magnesium 4.00 H Urine Total Volume Ur Total Protein 24 Hr Urine Total Protein Coronavirus (PCR) Negative
[2020-11-15 13:11] LABS: Basophils % (Auto) 0.3 % (0.0-1.8); Hematocrit 38.2 % (30.3-42.9); Hemoglobin 12.4 gm/dl (10.1-14.3); Lymphocytes # (Auto) 1.4 K/mm3 (1.2-5.4); Lymphocytes % (Auto) 12.3 % (13.4-35.0); Mean Corpuscular HGB Conc 33 % (30-34); Mean Corpuscular Volume 82 fl (79-97); Monocytes # (Auto) 0.8 K/mm3 (0.0-0.8); Monocytes % (Auto) 7.6 % (0.0-7.3); Platelet Count 392 K/mm3 (140-440); Red Blood Count 4.67 M/mm3 (3.65-5.03)
[2020-11-15 13:32] LABS: Alanine Aminotransferase 21 units/L (7-56); Albumin 3.1 g/dL (3.9-5); Blood Urea Nitrogen 7 mg/dL (7-17); Calcium 8.3 mg/dL (8.4-10.2); Hemolysis Index 14
[2020-11-15 13:39] LABS: BUN/Creatinine Ratio 12
--- NOTE | 2020-11-15 14:51 | Ultrasound Report ---
ULTRASOUND BIOPHYSICAL PROFILE INDICATION / CLINICAL INFORMATION: 29 wks, IUGR, Preeclampsia. COMPARISON: None available. FINDINGS: BREATHING MOVEMENT = 0 GROSS BODY MOVEMENT = 2 TONE = 2 QUALITATIVE AMNIOTIC FLUID VOLUME = 2 TOTAL BIOPHYSICAL SCORE = /8 AMNIOTIC FLUID INDEX (cm) = Not performed. The deepest vertical pocket measures 2.2 cm. PRESENTATION: Cephalic. HEART RATE (beats per minute): 142 IMPRESSION: biophysical profile = 10/23 Signer Name: Zbigniew Ny MD Signed: 11/15/2020 2:46 PM Workstation Name: [id number]
[2020-11-15] MEDS: hydrALAZINE 20 MG/1 ML INJ IV PRN (22:44)
[2020-11-16] MEDS: PRENATAL VIT27-FE FUMARATE-FOLIC ACID VIT TAB PO SCH (08:09)
--- NOTE | 2020-11-16 11:38 | Progress Note ---
Assessment and Plan - Patient Problems (1) Preeclampsia Current Visit: Yes Status: Acute Plan to address problem: Continue expectant management Deliver for signs and symptoms of worsening preeclampsia Subjective - Subjective Date of service: 11/16/20 Principal diagnosis: IUP at 29w4d, gestational hypertension Interval history: 30-year-old -0-0-1 at 29+6 weeks admitted for findings of preeclampsia. The patient is currently on oral labetalol. She has completed steroid therapy. She is currently without any significant complaints. She denies headaches or right upper quadrant pain. Laboratories indicate improvement in her liver function test and her platelet count remains normal. Patient reports: movement normal, no new complaints, no loss of fluid, no vaginal bleeding, no contractions Objective - Vital Signs Vital Signs: Vital Signs - 12hr 11/15/20 11/15/20 11/15/20 23:42 23:47 23:52 Temperature Pulse Rate 64 65 79 Respiratory Rate Blood Pressure Blood Pressure [Left] O2 Sat by Pulse 98 98 97 Oximetry 11/15/20 11/16/20 11/16/20 23:57 00:02 00:07 Temperature Pulse Rate 63 67 58 L Respiratory Rate Blood Pressure 151/75 Blood Pressure [Left] O2 Sat by Pulse 98 97 97 Oximetry 11/16/20 11/16/20 11/16/20 00:12 00:17 00:22 Temperature Pulse Rate 66 68 63 Respiratory Rate Blood Pressure Blood Pressure [Left] O2 Sat by Pulse 97 97 97 Oximetry 11/16/20 11/16/20 11/16/20 00:27 00:32 00:37 Temperature Pulse Rate 67 64 64 Respiratory Rate Blood Pressure 144/66 Blood Pressure [Left] O2 Sat by Pulse 97 95 97 Oximetry 11/16/20 11/16/20 11/16/20 00:42 00:47 00:52 Temperature Pulse Rate 67 77 60 Respiratory Rate Blood Pressure Blood Pressure [Left] O2 Sat by Pulse 97 97 97 Oximetry 11/16/20 11/16/20 11/16/20 00:57 01:00 01:02 Temperature Pulse Rate 59 L 64 84 Respiratory Rate Blood Pressure 145/71 Blood Pressure [Left] O2 Sat by Pulse 97 89 96 Oximetry 11/16/20 11/16/20 11/16/20 01:05 01:07 01:12 Temperature 98.4 F Pulse Rate 73 66 Respiratory 20 Rate Blood Pressure Blood Pressure [Left] O2 Sat by Pulse 97 97 Oximetry 11/16/20 11/16/20 11/16/20 01:17 01:22 01:27 Temperature Pulse Rate 68 71 67 Respiratory Rate Blood Pressure Blood Pressure [Left] O2 Sat by Pulse 97 97 97 Oximetry 11/16/20 11/16/20 11/16/20 01:32 01:37 01:42 Temperature Pulse Rate 71 65 64 Respiratory Rate Blood Pressure 139/68 Blood Pressure [Left] O2 Sat by Pulse 96 97 97 Oximetry 11/16/20 11/16/20 11/16/20 01:47 01:52 01:57 Temperature Pulse Rate 69 66 71 Respiratory Rate Blood Pressure Blood Pressure [Left] O2 Sat by Pulse 97 97 97 Oximetry 11/16/20 11/16/20 11/16/20 02:02 02:07 02:12 Temperature Pulse Rate 70 65 64 Respiratory Rate Blood Pressure 123/59 Blood Pressure [Left] O2 Sat by Pulse 96 98 98 Oximetry 11/16/20 11/16/20 11/16/20 02:15 02:17 02:22 Temperature Pulse Rate 60 72 67 Respiratory Rate Blood Pressure Blood Pressure [Left] O2 Sat by Pulse 91 97 98 Oximetry 11/16/20 11/16/20 11/16/20 02:27 02:32 02:37 Temperature Pulse Rate 61 65 70 Respiratory Rate Blood Pressure 143/81 Blood Pressure [Left] O2 Sat by Pulse 98 97 98 Oximetry 11/16/20 11/16/20 11/16/20 02:42 02:47 02:52 Temperature Pulse Rate 72 97 H 63 Respiratory Rate Blood Pressure Blood Pressure [Left] O2 Sat by Pulse 97 99 98 Oximetry 11/16/20 11/16/20 11/16/20 02:57 03:02 03:07 Temperature Pulse Rate 63 78 62 Respiratory Rate Blood Pressure Blood Pressure [Left] O2 Sat by Pulse 98 98 98 Oximetry 11/16/20 11/16/20 11/16/20 03:12 03:17 03:22 Temperature Pulse Rate 64 62 64 Respiratory Rate Blood Pressure Blood Pressure [Left] O2 Sat by Pulse 98 98 98 Oximetry 11/16/20 11/16/20 11/16/20 03:27 03:32 03:37 Temperature Pulse Rate 66 61 67 Respiratory Rate Blood Pressure Blood Pressure [Left] O2 Sat by Pulse 97 97 97 Oximetry 11/16/20 11/16/20 11/16/20 03:42 03:47 03:52 Temperature Pulse Rate 60 65 68 Respiratory Rate Blood Pressure Blood Pressure [Left] O2 Sat by Pulse 97 98 97 Oximetry 11/16/20 11/16/20 11/16/20 03:57 04:02 04:07 Temperature Pulse Rate 76 69 75 Respiratory Rate Blood Pressure Blood Pressure [Left] O2 Sat by Pulse 97 97 98 Oximetry 11/16/20 11/16/20 11/16/20 04:11 04:12 04:17 Temperature Pulse Rate 78 60 70 Respiratory Rate Blood Pressure Blood Pressure [Left] O2 Sat by Pulse 92 99 98 Oximetry 11/16/20 11/16/20 11/16/20 04:22 04:27 04:32 Temperature Pulse Rate 69 70 65 Respiratory Rate Blood Pressure Blood Pressure [Left] O2 Sat by Pulse 98 98 99 Oximetry 11/16/20 11/16/20 11/16/20 04:37 04:42 04:47 Temperature Pulse Rate 71 71 62 Respiratory Rate Blood Pressure 162/83 Blood Pressure [Left] O2 Sat by Pulse 98 98 99 Oximetry 11/16/20 11/16/20 11/16/20 04:52 04:57 05:02 Temperature Pulse Rate 66 73 67 Respiratory Rate Blood Pressure Blood Pressure [Left] O2 Sat by Pulse 98 98 97 Oximetry 11/16/20 11/16/20 11/16/20 05:07 05:12 05:16 Temperature 98.3 F Pulse Rate 62 60 Respiratory Rate Blood Pressure Blood Pressure [Left] O2 Sat by Pulse 98 98 Oximetry 11/16/20 11/16/20 11/16/20 05:17 05:22 05:27 Temperature Pulse Rate 65 57 L 62 Respiratory Rate Blood Pressure Blood Pressure [Left] O2 Sat by Pulse 98 98 98 Oximetry 11/16/20 11/16/20 11/16/20 05:32 05:37 05:42 Temperature Pulse Rate 55 L 74 67 Respiratory Rate Blood Pressure Blood Pressure [Left] O2 Sat by Pulse 98 97 97 Oximetry 11/16/20 11/16/20 11/16/20 05:47 05:52 05:57 Temperature Pulse Rate 59 L 73 60 Respiratory Rate Blood Pressure 142/71 Blood Pressure [Left] O2 Sat by Pulse 99 98 99 Oximetry 0711/16/20 11/16/20 06:02 06:07 06:12 Temperature Pulse Rate 60 63 70 Respiratory Rate Blood Pressure Blood Pressure [Left] O2 Sat by Pulse 98 98 98 Oximetry 11/16/20 11/16/20 11/16/20 06:17 06:22 06:27 Temperature Pulse Rate 74 66 62 Respiratory Rate Blood Pressure Blood Pressure [Left] O2 Sat by Pulse 97 98 99 Oximetry 11/16/20 11/16/20 11/16/20 06:32 06:37 06:42 Temperature Pulse Rate 74 74 72 Respiratory Rate Blood Pressure Blood Pressure [Left] O2 Sat by Pulse 98 98 98 Oximetry 11/16/20 11/16/20 11/16/20 06:47 06:52 06:57 Temperature Pulse Rate 106 H 71 64 Respiratory Rate Blood Pressure 150/82 Blood Pressure [Left] O2 Sat by Pulse 99 99 98 Oximetry 11/16/20 11/16/20 11/16/20 07:02 07:07 07:12 Temperature Pulse Rate 64 91 H 82 Respiratory Rate Blood Pressure Blood Pressure [Left] O2 Sat by Pulse 99 92 97 Oximetry 11/16/20 11/16/20 11/16/20 07:17 07:22 07:27 Temperature Pulse Rate 66 77 65 Respiratory Rate Blood Pressure Blood Pressure [Left] O2 Sat by Pulse 98 97 98 Oximetry 11/16/20 11/16/20 11/16/20 07:32 07:37 07:42 Temperature Pulse Rate 77 59 L 59 L Respiratory Rate Blood Pressure Blood Pressure [Left] O2 Sat by Pulse 98 98 98 Oximetry 11/16/20 11/16/20 11/16/20 07:47 07:52 07:57 Temperature Pulse Rate 60 80 64 Respiratory Rate Blood Pressure 152/78 Blood Pressure [Left] O2 Sat by Pulse 98 99 99 Oximetry 11/16/20 11/16/20 11/16/20 08:10 08:18 08:45 Temperature 98.6 F Pulse Rate 58 L 63 159 H Respiratory 19 Rate Blood Pressure 152/78 Blood Pressure 158/82 [Left] O2 Sat by Pulse 98 90 Oximetry 11/16/20 11/16/20 11/16/20 09:13 09:22 09:28 Temperature Pulse Rate 70 Respiratory Rate Blood Pressure Blood Pressure [Left] O2 Sat by Pulse 94 90 90 Oximetry 0711/16/20 11/16/20 09:29 09:34 09:39 Temperature Pulse Rate 72 60 62 Respiratory Rate Blood Pressure Blood Pressure [Left] O2 Sat by Pulse 100 99 99 Oximetry 11/16/20 11/16/20 11/16/20 09:44 09:49 09:54 Temperature Pulse Rate 75 61 60 Respiratory Rate Blood Pressure Blood Pressure [Left] O2 Sat by Pulse 99 99 99 Oximetry 11/16/20 11/16/20 11/16/20 09:59 10:04 10:09 Temperature Pulse Rate 58 L 63 Respiratory Rate Blood Pressure Blood Pressure [Left] O2 Sat by Pulse 99 100 99 Oximetry 11/16/20 11/16/20 11/16/20 10:14 10:19 10:24 Temperature Pulse Rate 57 L 72 68 Respiratory Rate Blood Pressure Blood Pressure [Left] O2 Sat by Pulse 99 99 99 Oximetry 11/16/20 11/16/20 11/16/20 10:29 10:34 10:39 Temperature Pulse Rate 60 55 L 60 Respiratory Rate Blood Pressure Blood Pressure [Left] O2 Sat by Pulse 98 99 99 Oximetry 11/16/20 11/16/20 11/16/20 10:44 10:49 10:54 Temperature Pulse Rate 59 L 62 62 Respiratory Rate Blood Pressure Blood Pressure [Left] O2 Sat by Pulse 99 99 100 Oximetry 11/16/20 11/16/20 11/16/20 10:59 11:01 11:04 Temperature Pulse Rate 66 53 L 56 L Respiratory Rate Blood Pressure 174/92 Blood Pressure [Left] O2 Sat by Pulse 100 99 Oximetry 11/16/20 11/16/20 11/16/20 11:09 11:14 11:16 Temperature Pulse Rate 63 66 58 L Respiratory Rate Blood Pressure 173/99 Blood Pressure [Left] O2 Sat by Pulse 99 99 Oximetry 11/16/20 11/16/20 11/16/20 11:18 11:19 11:24 Temperature Pulse Rate 56 L 64 85 Respiratory Rate Blood Pressure 175/90 Blood Pressure [Left] O2 Sat by Pulse 98 99 Oximetry 11/16/20 11:29 Temperature Pulse Rate 80 Respiratory Rate Blood Pressure Blood Pressure [Left] O2 Sat by Pulse 99 Oximetry - Labs Labs: Abnormal Labs 11/13/20 11/13/20 11/13/20 13:50 15:50 15:50 WBC RBC 5.23 H MCH 27 L Lymph % (Auto) [place] % (Auto) Seg Neutrophils % Seg Neutrophils # Sodium Creatinine 0.5 L Calcium Magnesium AST 69 H Alkaline Phosphatase Lactate Dehydrogenase 635 H Total Protein Albumin Ur Specific [place] 1.038 H Urine WBC (Auto) 11.0 H U Epithel Cells (Auto) 19.0 H Ur Total Protein 24 Hr Urine Total Protein 11/13/20 11/14/20 11/14/20 17:51 05:33 11:12 WBC RBC MCH 27 L Lymph % (Auto) [place] % (Auto) 8.6 H Seg Neutrophils % Seg Neutrophils # Sodium Creatinine Calcium Magnesium 5.30 H 6.30 H AST Alkaline Phosphatase Lactate Dehydrogenase Total Protein Albumin Ur Specific [place] Urine WBC (Auto) U Epithel Cells (Auto) Ur Total Protein 24 Hr Urine Total Protein 11/14/20 11/14/20 11/14/20 16:57 17:00 23:39 WBC RBC MCH Lymph % (Auto) [place] % (Auto) Seg Neutrophils % Seg Neutrophils # Sodium Creatinine Calcium Magnesium 6.30 H 4.00 H AST Alkaline Phosphatase Lactate Dehydrogenase Total Protein Albumin Ur Specific [place] Urine WBC (Auto) U Epithel Cells (Auto) Ur Total Protein 24 Hr 3440.00 H Urine Total Protein 80 H 11/15/20 11/15/20 11/15/20 05:12 12:59 12:59 WBC 11.1 H RBC MCH 27 L Lymph % (Auto) 12.3 L [place] % (Auto) 7.6 H Seg Neutrophils % 79.8 H Seg Neutrophils # 8.9 H Sodium Creatinine Calcium Magnesium 4.00 H 3.60 H AST Alkaline Phosphatase Lactate Dehydrogenase Total Protein Albumin Ur Specific [place] Urine WBC (Auto) U Epithel Cells (Auto) Ur Total Protein 24 Hr Urine Total Protein 11/15/20 11/15/20 12:59 18:21 WBC RBC MCH Lymph % (Auto) [place] % (Auto) Seg Neutrophils % Seg Neutrophils # Sodium 136 L Creatinine Calcium 8.3 L Magnesium 2.90 H AST Alkaline Phosphatase 168 H Lactate Dehydrogenase Total Protein 6.2 L Albumin 3.1 L Ur Specific [place] Urine WBC (Auto) U Epithel Cells (Auto) Ur Total Protein 24 Hr Urine Total Protein Laboratory Results - last 24 hr 11/15/20 11/15/20 11/15/20 12:59 12:59 12:59 WBC 11.1 H RBC 4.67 Hgb 12.4 Hct 38.2 MCV 82 MCH 27 L MCHC 33 RDW 15.0 Plt Count 392 Lymph % (Auto) 12.3 L [place] % (Auto) 7.6 H Eos % (Auto) 0.0 Baso % (Auto) 0.3 Lymph # (Auto) 1.4 [place] # (Auto) 0.8 Eos # (Auto) 0.0 Baso # (Auto) 0.0 Seg Neutrophils % 79.8 H Seg Neutrophils # 8.9 H Sodium 136 L Potassium 4.6 Chloride 101.8 Carbon Dioxide 22 Anion Gap 17 BUN 7 Creatinine 0.6 Estimated GFR > 60 BUN/Creatinine Ratio 12 Glucose 95 Calcium 8.3 L Magnesium 3.60 H Total Bilirubin 0.20 AST 24 ALT 21 Alkaline Phosphatase 168 H Total Protein 6.2 L Albumin 3.1 L Albumin/Globulin Ratio 1.0 11/15/20 18:21 WBC RBC Hgb Hct MCV MCH MCHC RDW Plt Count Lymph % (Auto) [place] % (Auto) Eos % (Auto) Baso % (Auto) Lymph # (Auto) [place] # (Auto) Eos # (Auto) Baso # (Auto) Seg Neutrophils % Seg Neutrophils # Sodium Potassium Chloride Carbon Dioxide Anion Gap BUN Creatinine Estimated GFR BUN/Creatinine Ratio Glucose Calcium Magnesium 2.90 H Total Bilirubin AST ALT Alkaline Phosphatase Total Protein Albumin Albumin/Globulin Ratio
--- NOTE | 2020-11-16 15:37 | Consultation ---
Consult Note - Parent Education I met with parent(s) and discussed the following:: Need for NICU admission, Poss ible need for intubation and surfactant or other resp support, Temperature regulation, Head ultrasounds to evaluate IVH, Eye exams for ROP screening, Possible need for IV fluids/TPN and IV antibiotics, Possible need for umbilical lines, Importance of providing breast milk & encouraged pumping aft delivery, Donor breast milk if baby meets criteria after , Slow feeding advancement and monitoring of tolerance. NG/OG feeds, Data for survival & survival without significant co-morbidities Parent(s) demonstrated understanding of all the information:: Yes Assessment and Plan - Assessment Gestation:: 29 Estimated Weight: 1197 grams (AGA) Baby's gender: Female Additional Comment: Mother and grandfather wanted to know if baby was small for her gestation. She is appropriate size for gestation on the 47th centile for growth per the Norma chart with her weight by ultrasound on 11/13. - Plan Plan: Agree with Mag & steroids Will attend delivery Please call NICU with questions
--- NOTE | 2020-11-17 08:19 | Ultrasound Report ---
ULTRASOUND OBSTETRIC LIMITED ULTRASOUND BIOPHYSICAL PROFILE INDICATION / CLINICAL INFORMATION: induced hypertension. IUGR. Clinical Gestational Age (GA) in weeks, days: 29, 6 TECHNIQUE: Transabdominal. COMPARISON: 11/15/20 FINDINGS: BREATHING MOVEMENT = 0 GROSS BODY MOVEMENT = 2 TONE = 2 QUALITATIVE AMNIOTIC FLUID VOLUME = 2 TOTAL BIOPHYSICAL SCORE = 6/8 HEART RATE (beats per minute): 137 AMNIOTIC FLUID INDEX (cm) = 8.8 (normal = 7-24 cm) PRESENTATION: Cephalic. Umbilical cord Doppler: S/D ratio average = 4.22 with normal waveform. Persistent. Resistive index average = 0.76 with normal waveform. Persistent. ADDITIONAL FINDINGS: None. IMPRESSION: 1. Biophysical Score = 6/8 Signer Name: Sanchez Thomson MD Signed: 11/16/2020 8:27 PM Workstation Name: [id number]
[2020-11-17] MEDS: hydrALAZINE 20 MG/1 ML INJ IV PRN ×3 (09:04→20:39)
[2020-11-17] MEDS: PRENATAL VIT27-FE FUMARATE-FOLIC ACID VIT TAB PO SCH (11:24)
--- NOTE | 2020-11-17 13:33 | Progress Note ---
Assessment and Plan IUP at 30 weeks here for preeclampsia. Continue expectant management. Deliver for signs or worsening pre-eclampsia. Subjective - Subjective Date of service: 11/17/20 Principal diagnosis: IUP at 29.4weeks, gestational hypertension Interval history: 30-year-old -0-0-1 at 30 weeks admitted for findings of preeclampsia. The patient is currently on oral labetalol. She has completed steroid therapy. She is currently without any significant complaints. She denies headaches or right upper quadrant pain. Laboratories indicate improvement in her liver function test and her platelet count remains normal. Patient reports: movement normal, no new complaints, no loss of fluid, no vaginal bleeding, no contractions Objective - Vital Signs Vital Signs: Vital Signs - 12hr 11/17/20 11/17/20 11/17/20 01:37 01:42 01:47 Temperature Pulse Rate 82 66 67 Respiratory Rate Blood Pressure 137/72 O2 Sat by Pulse 96 97 97 Oximetry 11/17/20 11/17/20 11/17/20 01:52 01:57 02:02 Temperature Pulse Rate 66 80 69 Respiratory Rate Blood Pressure O2 Sat by Pulse 97 97 98 Oximetry 11/17/20 11/17/20 11/17/20 02:07 02:12 02:17 Temperature Pulse Rate 60 63 65 Respiratory Rate Blood Pressure 146/70 O2 Sat by Pulse 93 97 97 Oximetry 11/17/20 11/17/20 11/17/20 02:22 02:27 02:32 Temperature Pulse Rate 65 63 62 Respiratory Rate Blood Pressure O2 Sat by Pulse 97 97 98 Oximetry 11/17/20 11/17/20 11/17/20 02:37 02:42 02:47 Temperature Pulse Rate 56 L 67 60 Respiratory Rate Blood Pressure 157/73 O2 Sat by Pulse 95 98 98 Oximetry 11/17/20 11/17/20 11/17/20 02:52 02:57 03:02 Temperature Pulse Rate 83 64 66 Respiratory Rate Blood Pressure O2 Sat by Pulse 96 97 96 Oximetry 11/17/20 11/17/20 11/17/20 03:07 03:12 03:15 Temperature 98.3 F Pulse Rate 66 57 L Respiratory Rate Blood Pressure 199/94 O2 Sat by Pulse 93 99 Oximetry 11/17/20 11/17/20 11/17/20 03:17 03:22 03:27 Temperature Pulse Rate 65 55 L 58 L Respiratory Rate Blood Pressure O2 Sat by Pulse 97 99 99 Oximetry 11/17/20 11/17/20 11/17/20 03:32 03:37 03:42 Temperature Pulse Rate 57 L 62 55 L Respiratory Rate Blood Pressure 176/94 O2 Sat by Pulse 98 96 98 Oximetry 11/17/20 11/17/20 11/17/20 03:47 03:52 03:57 Temperature Pulse Rate 55 L 57 L 60 Respiratory Rate Blood Pressure O2 Sat by Pulse 97 97 98 Oximetry 11/17/20 11/17/20 11/17/20 04:02 04:07 04:12 Temperature Pulse Rate 58 L 66 65 Respiratory Rate Blood Pressure 166/88 O2 Sat by Pulse 98 95 98 Oximetry 11/17/20 11/17/20 11/17/20 04:17 04:22 04:27 Temperature Pulse Rate 56 L 59 L 61 Respiratory Rate Blood Pressure O2 Sat by Pulse 98 97 97 Oximetry 11/17/20 11/17/20 11/17/20 04:32 04:37 04:42 Temperature Pulse Rate 64 62 57 L Respiratory Rate Blood Pressure 141/76 O2 Sat by Pulse 97 93 97 Oximetry 11/17/20 11/17/20 11/17/20 04:47 04:52 04:57 Temperature Pulse Rate 60 54 L 59 L Respiratory Rate Blood Pressure O2 Sat by Pulse 97 97 96 Oximetry 11/17/20 11/17/20 11/17/20 05:02 05:07 05:12 Temperature Pulse Rate 59 L 57 L 57 L Respiratory Rate Blood Pressure 151/72 O2 Sat by Pulse 97 92 97 Oximetry 11/17/20 11/17/20 11/17/20 05:17 05:22 05:27 Temperature Pulse Rate 61 59 L 62 Respiratory Rate Blood Pressure O2 Sat by Pulse 97 97 96 Oximetry 11/17/20 11/17/20 11/17/20 05:32 05:37 05:42 Temperature Pulse Rate 58 L 57 L 62 Respiratory Rate Blood Pressure 158/83 O2 Sat by Pulse 97 94 99 Oximetry 11/17/20 11/17/20 11/17/20 05:47 05:52 05:57 Temperature Pulse Rate 61 61 61 Respiratory Rate Blood Pressure O2 Sat by Pulse 98 99 99 Oximetry 11/17/20 11/17/20 11/17/20 06:02 06:07 06:12 Temperature Pulse Rate 64 59 L 54 L Respiratory Rate Blood Pressure 181/86 O2 Sat by Pulse 98 96 98 Oximetry 11/17/20 11/17/20 11/17/20 06:17 06:22 06:27 Temperature Pulse Rate 56 L 59 L 69 Respiratory Rate Blood Pressure O2 Sat by Pulse 98 98 98 Oximetry 11/17/20 11/17/20 11/17/20 06:32 06:37 06:42 Temperature Pulse Rate 63 56 L 60 Respiratory Rate Blood Pressure 152/86 O2 Sat by Pulse 98 97 98 Oximetry 11/17/20 11/17/20 11/17/20 06:47 06:52 06:57 Temperature Pulse Rate 60 57 L 59 L Respiratory Rate Blood Pressure O2 Sat by Pulse 98 98 98 Oximetry 11/17/20 11/17/20 11/17/20 07:02 07:07 07:12 Temperature Pulse Rate 53 L 61 57 L Respiratory Rate Blood Pressure 156/70 O2 Sat by Pulse 98 96 98 Oximetry 11/17/20 11/17/20 11/17/20 07:17 07:22 07:27 Temperature Pulse Rate 60 61 60 Respiratory Rate Blood Pressure O2 Sat by Pulse 98 98 98 Oximetry 11/17/20 11/17/20 11/17/20 07:32 07:37 07:42 Temperature Pulse Rate 59 L 60 79 Respiratory Rate Blood Pressure 167/79 O2 Sat by Pulse 97 95 97 Oximetry 11/17/20 11/17/20 11/17/20 07:47 07:52 07:57 Temperature Pulse Rate 88 67 60 Respiratory Rate Blood Pressure O2 Sat by Pulse 98 99 99 Oximetry 11/17/20 11/17/20 11/17/20 08:00 08:02 08:04 Temperature 98.3 F Pulse Rate 58 L 58 L Respiratory 18 Rate Blood Pressure 177/86 O2 Sat by Pulse 99 Oximetry 11/17/20 11/17/20 11/17/20 08:06 08:07 08:12 Temperature Pulse Rate 56 L 66 53 L Respiratory Rate Blood Pressure 177/86 O2 Sat by Pulse 98 99 Oximetry 11/17/20 11/17/20 11/17/20 08:17 08:22 08:27 Temperature Pulse Rate 52 L 51 L 58 L Respiratory Rate Blood Pressure O2 Sat by Pulse 99 98 98 Oximetry 11/17/20 11/17/20 11/17/20 08:32 08:37 08:42 Temperature Pulse Rate 51 L 52 L 59 L Respiratory Rate Blood Pressure 213/105 O2 Sat by Pulse 99 96 99 Oximetry 11/17/20 11/17/20 11/17/20 08:47 08:52 08:57 Temperature Pulse Rate 54 L 54 L 50 L Respiratory Rate Blood Pressure O2 Sat by Pulse 98 100 99 Oximetry 11/17/20 11/17/20 11/17/20 09:02 09:04 09:07 Temperature Pulse Rate 51 L 70 55 L Respiratory Rate Blood Pressure 194/102 194/102 O2 Sat by Pulse 95 98 Oximetry 11/17/20 11/17/20 11/17/20 09:12 09:17 09:22 Temperature Pulse Rate 85 83 87 Respiratory Rate Blood Pressure O2 Sat by Pulse 98 99 98 Oximetry 11/17/20 11/17/20 11/17/20 09:27 09:32 09:47 Temperature Pulse Rate 70 95 H Respiratory Rate Blood Pressure O2 Sat by Pulse 98 98 88 Oximetry 11/17/20 11/17/20 11/17/20 09:48 09:53 09:58 Temperature Pulse Rate 68 85 77 Respiratory Rate Blood Pressure O2 Sat by Pulse 89 99 98 Oximetry 11/17/20 11/17/20 11/17/20 10:03 10:07 10:08 Temperature Pulse Rate 71 80 76 Respiratory Rate Blood Pressure 135/66 O2 Sat by Pulse 98 98 Oximetry 11/17/20 11/17/20 11/17/20 10:13 10:18 10:23 Temperature Pulse Rate 80 88 79 Respiratory Rate Blood Pressure O2 Sat by Pulse 97 97 97 Oximetry 11/17/20 11/17/20 11/17/20 10:28 10:33 10:37 Temperature Pulse Rate 84 85 84 Respiratory Rate Blood Pressure 137/73 O2 Sat by Pulse 97 98 Oximetry 11/17/20 11/17/20 11/17/20 10:38 10:43 10:48 Temperature Pulse Rate 79 79 78 Respiratory Rate Blood Pressure O2 Sat by Pulse 97 96 96 Oximetry 11/17/20 11/17/20 11/17/20 10:53 10:58 11:03 Temperature Pulse Rate 80 88 88 Respiratory Rate Blood Pressure O2 Sat by Pulse 95 95 97 Oximetry 07/03/21 07/03/21 07/03/21 11:07 11:08 11:13 Temperature Pulse Rate 73 88 75 Respiratory Rate Blood Pressure 149/74 O2 Sat by Pulse 95 97 Oximetry 11/17/20 11/17/20 11/17/20 11:18 11:23 11:28 Temperature Pulse Rate 80 70 75 Respiratory Rate Blood Pressure O2 Sat by Pulse 96 97 97 Oximetry 11/17/20 11/17/20 11/17/20 11:33 11:37 11:38 Temperature Pulse Rate 74 78 Respiratory Rate Blood Pressure 148/70 O2 Sat by Pulse 97 100 Oximetry 11/17/20 11/17/20 11/17/20 11:43 11:48 11:53 Temperature Pulse Rate 71 72 77 Respiratory Rate Blood Pressure O2 Sat by Pulse 97 97 97 Oximetry 11/17/20 11/17/20 11/17/20 11:58 12:03 12:07 Temperature Pulse Rate 75 72 64 Respiratory Rate Blood Pressure 150/72 O2 Sat by Pulse 97 97 Oximetry 11/17/20 11/17/20 11/17/20 12:08 12:13 12:18 Temperature Pulse Rate 67 77 72 Respiratory Rate Blood Pressure O2 Sat by Pulse 96 97 96 Oximetry 11/17/20 11/17/20 11/17/20 12:23 12:28 12:33 Temperature Pulse Rate 68 70 71 Respiratory Rate Blood Pressure O2 Sat by Pulse 96 97 96 Oximetry 11/17/20 11/17/20 11/17/20 12:37 12:38 12:43 Temperature Pulse Rate 73 68 63 Respiratory Rate Blood Pressure 145/76 O2 Sat by Pulse 97 97 Oximetry 11/17/20 11/17/20 11/17/20 12:48 12:53 12:58 Temperature Pulse Rate 92 H 70 70 Respiratory Rate Blood Pressure O2 Sat by Pulse 99 98 99 Oximetry 11/17/20 11/17/20 11/17/20 13:03 13:07 13:08 Temperature Pulse Rate 67 67 87 Respiratory Rate Blood Pressure 162/85 O2 Sat by Pulse 98 99 Oximetry 11/17/20 11/17/20 11/17/20 13:13 13:18 13:23 Temperature Pulse Rate 63 64 69 Respiratory Rate Blood Pressure O2 Sat by Pulse 98 98 98 Oximetry 11/17/20 13:28 Temperature Pulse Rate 79 Respiratory Rate Blood Pressure O2 Sat by Pulse 97 Oximetry - Exam Breasts: deferred Lungs: Clear to auscultation, Normal air movement Abdomen: Present: normal appearance, soft, normal bowel sounds Uterus: Present: normal, firm FHR: auscultation normal - Labs Labs: Abnormal Labs 11/13/20 11/13/20 11/13/20 13:50 15:50 15:50 WBC RBC 5.23 H MCH 27 L Lymph % (Auto) [place] % (Auto) Seg Neutrophils % Seg Neutrophils # Sodium Creatinine 0.5 L Calcium Magnesium AST 69 H Alkaline Phosphatase Lactate Dehydrogenase 635 H Total Protein Albumin Ur Specific [place] 1.038 H Urine WBC (Auto) 11.0 H U Epithel Cells (Auto) 19.0 H Ur Total Protein 24 Hr Urine Total Protein 11/13/20 11/14/20 11/14/20 17:51 05:33 11:12 WBC RBC MCH 27 L Lymph % (Auto) [place] % (Auto) 8.6 H Seg Neutrophils % Seg Neutrophils # Sodium Creatinine Calcium Magnesium 5.30 H 6.30 H AST Alkaline Phosphatase Lactate Dehydrogenase Total Protein Albumin Ur Specific [place] Urine WBC (Auto) U Epithel Cells (Auto) Ur Total Protein 24 Hr Urine Total Protein 11/14/20 11/14/20 11/14/20 16:57 17:00 23:39 WBC RBC MCH Lymph % (Auto) [place] % (Auto) Seg Neutrophils % Seg Neutrophils # Sodium Creatinine Calcium Magnesium 6.30 H 4.00 H AST Alkaline Phosphatase Lactate Dehydrogenase Total Protein Albumin Ur Specific [place] Urine WBC (Auto) U Epithel Cells (Auto) Ur Total Protein 24 Hr 3440.00 H Urine Total Protein 80 H 11/15/20 11/15/20 11/15/20 05:12 12:59 12:59 WBC 11.1 H RBC MCH 27 L Lymph % (Auto) 12.3 L [place] % (Auto) 7.6 H Seg Neutrophils % 79.8 H Seg Neutrophils # 8.9 H Sodium Creatinine Calcium Magnesium 4.00 H 3.60 H AST Alkaline Phosphatase Lactate Dehydrogenase Total Protein Albumin Ur Specific [place] Urine WBC (Auto) U Epithel Cells (Auto) Ur Total Protein 24 Hr Urine Total Protein 11/15/20 11/15/20 12:59 18:21 WBC RBC MCH Lymph % (Auto) [place] % (Auto) Seg Neutrophils % Seg Neutrophils # Sodium 136 L Creatinine Calcium 8.3 L Magnesium 2.90 H AST Alkaline Phosphatase 168 H Lactate Dehydrogenase Total Protein 6.2 L Albumin 3.1 L Ur Specific [place] Urine WBC (Auto) U Epithel Cells (Auto) Ur Total Protein 24 Hr Urine Total Protein
[2020-11-18] MEDS: PRENATAL VIT27-FE FUMARATE-FOLIC ACID VIT TAB PO SCH (10:04)
--- NOTE | 2020-11-18 14:45 | Progress Note ---
Assessment and Plan Hospital day 2 for this 29 and 5-week patient with symptoms of preeclampsia. Patient is currently stable. We will continue to monitor for worsening signs and symptoms. Will deliver as indicated. Subjective - Subjective Date of service: 11/18/20 Principal diagnosis: IUP at 29.4weeks, gestational hypertension Interval history: 30-year-old -0-0-1 at 30 weeks admitted for findings of preeclampsia. The patient is currently on oral labetalol. She has completed steroid therapy. She is currently without any significant complaints. She denies headaches or right upper quadrant pain. Laboratories indicate improvement in her liver function test and her platelet count remains normal. Patient reports: movement normal, no new complaints, no loss of fluid, no vaginal bleeding, no contractions Objective - Vital Signs Vital Signs: Vital Signs - 12hr 11/18/20 11/18/20 11/18/20 02:45 02:50 02:55 Temperature Pulse Rate 63 62 61 Respiratory Rate Blood Pressure Blood Pressure [Left] O2 Sat by Pulse 98 97 97 Oximetry 11/18/20 11/18/20 11/18/20 03:00 03:05 03:07 Temperature Pulse Rate 67 68 68 Respiratory Rate Blood Pressure 144/77 Blood Pressure [Left] O2 Sat by Pulse 98 97 Oximetry 11/18/20 11/18/20 11/18/20 03:10 03:15 03:20 Temperature Pulse Rate 66 87 78 Respiratory Rate Blood Pressure Blood Pressure [Left] O2 Sat by Pulse 97 98 97 Oximetry 11/18/20 11/18/20 11/18/20 03:25 03:30 03:35 Temperature Pulse Rate 70 80 68 Respiratory Rate Blood Pressure Blood Pressure [Left] O2 Sat by Pulse 98 98 98 Oximetry 11/18/20 11/18/20 11/18/20 03:37 03:40 03:45 Temperature Pulse Rate 61 61 68 Respiratory Rate Blood Pressure 132/66 Blood Pressure [Left] O2 Sat by Pulse 98 98 Oximetry 11/18/20 11/18/20 11/18/20 03:50 03:55 04:00 Temperature Pulse Rate 73 68 69 Respiratory Rate Blood Pressure Blood Pressure [Left] O2 Sat by Pulse 97 98 99 Oximetry 11/18/20 11/18/20 11/18/20 04:05 04:08 04:10 Temperature 98.6 F Pulse Rate 75 67 68 Respiratory Rate Blood Pressure 160/91 Blood Pressure [Left] O2 Sat by Pulse 98 99 Oximetry 11/18/20 11/18/20 11/18/20 04:15 04:20 04:25 Temperature Pulse Rate 63 64 63 Respiratory Rate Blood Pressure Blood Pressure [Left] O2 Sat by Pulse 98 98 99 Oximetry 11/18/20 11/18/20 11/18/20 04:30 04:35 04:37 Temperature Pulse Rate 61 63 62 Respiratory Rate Blood Pressure 148/76 Blood Pressure [Left] O2 Sat by Pulse 98 98 Oximetry 11/18/20 11/18/20 11/18/20 04:40 04:45 04:50 Temperature Pulse Rate 62 62 76 Respiratory Rate Blood Pressure Blood Pressure [Left] O2 Sat by Pulse 98 98 97 Oximetry 11/18/20 11/18/20 11/18/20 04:55 05:00 05:05 Temperature Pulse Rate 64 70 64 Respiratory Rate Blood Pressure Blood Pressure [Left] O2 Sat by Pulse 97 99 98 Oximetry 11/18/20 11/18/20 11/18/20 05:07 05:10 05:13 Temperature Pulse Rate 62 63 73 Respiratory Rate Blood Pressure 173/86 159/83 Blood Pressure [Left] O2 Sat by Pulse 98 Oximetry 11/18/20 11/18/20 11/18/20 05:15 05:20 05:25 Temperature Pulse Rate 63 61 59 L Respiratory Rate Blood Pressure Blood Pressure [Left] O2 Sat by Pulse 98 98 98 Oximetry 11/18/20 11/18/20 11/18/20 05:30 05:35 05:37 Temperature Pulse Rate 62 58 L 55 L Respiratory Rate Blood Pressure 151/76 Blood Pressure [Left] O2 Sat by Pulse 98 98 Oximetry 11/18/20 11/18/20 11/18/20 05:40 05:45 05:50 Temperature Pulse Rate 60 63 62 Respiratory Rate Blood Pressure Blood Pressure [Left] O2 Sat by Pulse 98 98 98 Oximetry 11/18/20 11/18/20 11/18/20 05:55 06:00 06:05 Temperature Pulse Rate 62 60 68 Respiratory Rate Blood Pressure Blood Pressure [Left] O2 Sat by Pulse 98 98 98 Oximetry 11/18/20 11/18/20 11/18/20 06:07 06:10 06:15 Temperature Pulse Rate 63 65 65 Respiratory Rate Blood Pressure 155/79 Blood Pressure [Left] O2 Sat by Pulse 98 97 Oximetry 11/18/20 11/18/20 11/18/20 06:20 06:25 06:30 Temperature Pulse Rate 74 73 80 Respiratory Rate Blood Pressure Blood Pressure [Left] O2 Sat by Pulse 98 98 98 Oximetry 11/18/20 11/18/20 11/18/20 06:35 06:37 06:40 Temperature Pulse Rate 65 57 L 67 Respiratory Rate Blood Pressure 149/76 Blood Pressure [Left] O2 Sat by Pulse 98 97 Oximetry 11/18/20 11/18/20 11/18/20 06:45 06:50 06:55 Temperature Pulse Rate 66 67 64 Respiratory Rate Blood Pressure Blood Pressure [Left] O2 Sat by Pulse 98 98 98 Oximetry 11/18/20 11/18/20 11/18/20 07:00 07:05 07:07 Temperature Pulse Rate 64 65 59 L Respiratory Rate Blood Pressure 142/67 Blood Pressure [Left] O2 Sat by Pulse 98 98 Oximetry 11/18/20 11/18/20 11/18/20 07:10 07:15 07:20 Temperature Pulse Rate 70 66 66 Respiratory Rate Blood Pressure Blood Pressure [Left] O2 Sat by Pulse 98 98 98 Oximetry 11/18/20 11/18/20 11/18/20 07:25 07:30 07:35 Temperature Pulse Rate 65 62 68 Respiratory Rate Blood Pressure Blood Pressure [Left] O2 Sat by Pulse 98 98 97 Oximetry 11/18/20 11/18/20 11/18/20 07:37 07:40 07:45 Temperature 98 F Pulse Rate 69 68 63 Respiratory 16 Rate Blood Pressure 134/72 133/71 Blood Pressure 133/74 [Left] O2 Sat by Pulse 96 98 Oximetry 11/18/20 11/18/20 11/18/20 07:48 07:50 07:55 Temperature Pulse Rate 83 88 96 H Respiratory Rate Blood Pressure 133/71 Blood Pressure [Left] O2 Sat by Pulse 97 98 Oximetry 11/18/20 11/18/20 11/18/20 08:00 08:05 08:10 Temperature Pulse Rate 68 69 79 Respiratory Rate Blood Pressure Blood Pressure [Left] O2 Sat by Pulse 98 98 97 Oximetry 11/18/20 11/18/20 11/18/20 08:15 08:20 08:25 Temperature Pulse Rate 67 60 90 Respiratory Rate Blood Pressure Blood Pressure [Left] O2 Sat by Pulse 98 98 99 Oximetry 11/18/20 11/18/20 11/18/20 08:39 08:44 08:49 Temperature Pulse Rate 87 78 80 Respiratory Rate Blood Pressure Blood Pressure [Left] O2 Sat by Pulse 98 99 99 Oximetry 11/18/20 11/18/20 11/18/20 08:54 08:59 09:04 Temperature Pulse Rate 79 83 100 H Respiratory Rate Blood Pressure Blood Pressure [Left] O2 Sat by Pulse 98 97 97 Oximetry 11/18/20 11/18/20 11/18/20 09:07 09:09 09:14 Temperature Pulse Rate 88 104 H 84 Respiratory Rate Blood Pressure 133/70 Blood Pressure [Left] O2 Sat by Pulse 98 96 Oximetry 11/18/20 11/18/20 11/18/20 09:19 09:24 09:29 Temperature Pulse Rate 85 83 88 Respiratory Rate Blood Pressure Blood Pressure [Left] O2 Sat by Pulse 97 97 97 Oximetry 11/18/20 11/18/20 11/18/20 09:34 09:37 09:39 Temperature Pulse Rate 89 86 88 Respiratory Rate Blood Pressure 127/60 Blood Pressure [Left] O2 Sat by Pulse 97 96 Oximetry 11/18/20 11/18/20 11/18/20 09:44 09:49 09:54 Temperature Pulse Rate 83 83 85 Respiratory Rate Blood Pressure Blood Pressure [Left] O2 Sat by Pulse 95 96 97 Oximetry 11/18/20 11/18/20 11/18/20 09:59 10:04 10:06 Temperature Pulse Rate 87 92 H 82 Respiratory Rate Blood Pressure 133/72 Blood Pressure [Left] O2 Sat by Pulse 96 98 Oximetry 11/18/20 11/18/20 11/18/20 10:09 10:14 10:19 Temperature Pulse Rate 83 77 78 Respiratory Rate Blood Pressure Blood Pressure [Left] O2 Sat by Pulse 98 99 99 Oximetry 11/18/20 11/18/20 11/18/20 10:24 10:29 10:34 Temperature Pulse Rate 73 74 70 Respiratory Rate Blood Pressure Blood Pressure [Left] O2 Sat by Pulse 99 99 100 Oximetry 11/18/20 11/18/20 11/18/20 10:37 10:39 10:44 Temperature Pulse Rate 65 72 79 Respiratory Rate Blood Pressure 162/88 Blood Pressure [Left] O2 Sat by Pulse 98 96 Oximetry 11/18/20 11/18/20 11/18/20 10:49 10:54 10:59 Temperature Pulse Rate 78 82 85 Respiratory Rate Blood Pressure Blood Pressure [Left] O2 Sat by Pulse 96 95 97 Oximetry 11/18/20 11/18/20 11/18/20 11:04 11:07 11:09 Temperature Pulse Rate 75 76 71 Respiratory Rate Blood Pressure 129/68 Blood Pressure [Left] O2 Sat by Pulse 97 97 Oximetry 11/18/20 11/18/20 11/18/20 11:14 11:19 11:24 Temperature Pulse Rate 75 78 82 Respiratory Rate Blood Pressure Blood Pressure [Left] O2 Sat by Pulse 97 97 97 Oximetry 11/18/20 11/18/20 11/18/20 11:29 11:34 11:37 Temperature Pulse Rate 75 69 72 Respiratory Rate Blood Pressure 122/68 Blood Pressure [Left] O2 Sat by Pulse 97 97 Oximetry 11/18/20 11/18/20 11/18/20 11:39 11:44 11:49 Temperature Pulse Rate 72 71 71 Respiratory Rate Blood Pressure Blood Pressure [Left] O2 Sat by Pulse 96 96 97 Oximetry 11/18/20 11/18/20 11/18/20 11:54 11:59 12:04 Temperature Pulse Rate 63 87 88 Respiratory Rate Blood Pressure Blood Pressure [Left] O2 Sat by Pulse 96 98 98 Oximetry 11/18/20 11/18/20 11/18/20 12:07 12:09 12:14 Temperature Pulse Rate 85 102 H 89 Respiratory Rate Blood Pressure 154/61 Blood Pressure [Left] O2 Sat by Pulse 98 99 Oximetry 11/18/20 11/18/20 11/18/20 12:19 12:24 12:29 Temperature Pulse Rate 74 75 84 Respiratory Rate Blood Pressure Blood Pressure [Left] O2 Sat by Pulse 97 97 98 Oximetry 11/18/20 11/18/20 11/18/20 12:34 12:37 12:39 Temperature Pulse Rate 80 74 72 Respiratory Rate Blood Pressure 140/73 Blood Pressure [Left] O2 Sat by Pulse 98 98 Oximetry 11/18/20 11/18/20 11/18/20 12:44 12:49 12:54 Temperature Pulse Rate 70 75 84 Respiratory Rate Blood Pressure Blood Pressure [Left] O2 Sat by Pulse 98 98 99 Oximetry 11/18/20 11/18/20 11/18/20 12:59 13:04 13:07 Temperature Pulse Rate 70 75 82 Respiratory Rate Blood Pressure 138/74 Blood Pressure [Left] O2 Sat by Pulse 98 99 Oximetry 11/18/20 11/18/20 11/18/20 13:09 13:14 13:19 Temperature Pulse Rate 71 74 79 Respiratory Rate Blood Pressure Blood Pressure [Left] O2 Sat by Pulse 98 98 97 Oximetry 11/18/20 11/18/20 11/18/20 13:24 13:29 13:34 Temperature Pulse Rate 82 80 75 Respiratory Rate Blood Pressure Blood Pressure [Left] O2 Sat by Pulse 97 97 98 Oximetry 11/18/20 11/18/20 11/18/20 13:37 13:39 13:43 Temperature Pulse Rate 81 74 83 Respiratory Rate Blood Pressure 148/82 148/82 Blood Pressure [Left] O2 Sat by Pulse 98 Oximetry 11/18/20 11/18/20 11/18/20 13:44 13:49 13:54 Temperature Pulse Rate 74 64 69 Respiratory Rate Blood Pressure Blood Pressure [Left] O2 Sat by Pulse 98 98 97 Oximetry 11/18/20 11/18/20 11/18/20 13:59 14:04 14:07 Temperature Pulse Rate 70 72 63 Respiratory Rate Blood Pressure 139/74 Blood Pressure [Left] O2 Sat by Pulse 98 98 Oximetry 11/18/20 11/18/20 11/18/20 14:09 14:14 14:19 Temperature Pulse Rate 66 65 68 Respiratory Rate Blood Pressure Blood Pressure [Left] O2 Sat by Pulse 98 98 98 Oximetry 11/18/20 11/18/20 11/18/20 14:24 14:29 14:34 Temperature Pulse Rate 62 68 59 L Respiratory Rate Blood Pressure Blood Pressure [Left] O2 Sat by Pulse 98 98 98 Oximetry 11/18/20 11/18/20 14:37 14:39 Temperature Pulse Rate 58 L 65 Respiratory Rate Blood Pressure 137/62 Blood Pressure [Left] O2 Sat by Pulse 99 Oximetry - Exam Breasts: deferred Cardiovascular: Regular rate, Normal S1, Normal S2 Lungs: Clear to auscultation, Normal air movement Abdomen: Present: normal appearance, soft, normal bowel sounds Vulva: both: normal Uterus: Present: normal, firm FHR: auscultation normal - Labs Labs: Abnormal Labs 11/13/20 11/13/2021 13:50 15:50 15:50 WBC RBC 5.23 H MCH 27 L Lymph % (Auto) [place] % (Auto) Seg Neutrophils % Seg Neutrophils # Sodium Creatinine 0.5 L Calcium Magnesium AST 69 H Alkaline Phosphatase Lactate Dehydrogenase 635 H Total Protein Albumin Ur Specific [place] 1.038 H Urine WBC (Auto) 11.0 H U Epithel Cells (Auto) 19.0 H Ur Total Protein 24 Hr Urine Total Protein 11/13/20 11/14/20 11/14/20 17:51 05:33 11:12 WBC RBC MCH 27 L Lymph % (Auto) [place] % (Auto) 8.6 H Seg Neutrophils % Seg Neutrophils # Sodium Creatinine Calcium Magnesium 5.30 H 6.30 H AST Alkaline Phosphatase Lactate Dehydrogenase Total Protein Albumin Ur Specific [place] Urine WBC (Auto) U Epithel Cells (Auto) Ur Total Protein 24 Hr Urine Total Protein 11/14/20 11/14/20 11/14/20 16:57 17:00 23:39 WBC RBC MCH Lymph % (Auto) [place] % (Auto) Seg Neutrophils % Seg Neutrophils # Sodium Creatinine Calcium Magnesium 6.30 H 4.00 H AST Alkaline Phosphatase Lactate Dehydrogenase Total Protein Albumin Ur Specific [place] Urine WBC (Auto) U Epithel Cells (Auto) Ur Total Protein 24 Hr 3440.00 H Urine Total Protein 80 H 11/15/20 11/15/20 11/15/20 05:12 12:59 12:59 WBC 11.1 H RBC MCH 27 L Lymph % (Auto) 12.3 L [place] % (Auto) 7.6 H Seg Neutrophils % 79.8 H Seg Neutrophils # 8.9 H Sodium Creatinine Calcium Magnesium 4.00 H 3.60 H AST Alkaline Phosphatase Lactate Dehydrogenase Total Protein Albumin Ur Specific [place] Urine WBC (Auto) U Epithel Cells (Auto) Ur Total Protein 24 Hr Urine Total Protein 11/15/20 11/15/20 12:59 18:21 WBC RBC MCH Lymph % (Auto) [place] % (Auto) Seg Neutrophils % Seg Neutrophils # Sodium 136 L Creatinine Calcium 8.3 L Magnesium 2.90 H AST Alkaline Phosphatase 168 H Lactate Dehydrogenase Total Protein 6.2 L Albumin 3.1 L Ur Specific [place] Urine WBC (Auto) U Epithel Cells (Auto) Ur Total Protein 24 Hr Urine Total Protein
[2020-11-18] MEDS: hydrALAZINE 20 MG/1 ML INJ IV PRN (22:25)
--- NOTE | 2020-11-19 08:57 | Progress Note ---
Assessment and Plan - Patient Problems (1) Preeclampsia Current Visit: Yes Status: Acute Plan to address problem: Continue expectant management Subjective - Subjective Date of service: 11/19/20 Principal diagnosis: IUP at 29.4weeks, gestational hypertension Interval history: 30-year-old -0-0-1 at 30+2 weeks admitted for findings of preeclampsia. Patient is currently without any complaints. She has had improvement in her blood pressures with bedrest and oral labetalol. Patient reports: movement normal, no new complaints, no loss of fluid, no vaginal bleeding, no contractions Objective - Vital Signs Vital Signs: Vital Signs - 12hr 11/18/20 11/18/20 11/18/20 21:46 22:25 22:46 Temperature Pulse Rate 62 62 67 Respiratory Rate Blood Pressure 176/92 176/93 162/91 Blood Pressure [Left] O2 Sat by Pulse Oximetry 11/18/20 11/18/20 11/19/20 23:46 23:47 00:46 Temperature 98.2 F Pulse Rate 64 78 Respiratory 18 Rate Blood Pressure 162/88 131/72 Blood Pressure [Left] O2 Sat by Pulse Oximetry 11/19/20 11/19/20 11/19/20 01:46 02:46 03:46 Temperature Pulse Rate 76 79 73 Respiratory Rate Blood Pressure 131/62 133/78 139/77 Blood Pressure [Left] O2 Sat by Pulse Oximetry 11/19/20 11/19/20 11/19/20 04:05 04:46 05:46 Temperature Pulse Rate 72 75 Respiratory 18 Rate Blood Pressure 124/64 102/58 Blood Pressure [Left] O2 Sat by Pulse Oximetry 11/19/20 11/19/20 11/19/20 06:46 07:41 07:42 Temperature 97.8 F Pulse Rate 58 L 75 75 Respiratory 20 Rate Blood Pressure 159/70 141/74 Blood Pressure 141/74 [Left] O2 Sat by Pulse 100 Oximetry - Labs Labs: Abnormal Labs 11/13/20 11/13/20 11/13/20 13:50 15:50 15:50 WBC RBC 5.23 H MCH 27 L Lymph % (Auto) [place] % (Auto) Seg Neutrophils % Seg Neutrophils # Sodium Creatinine 0.5 L Calcium Magnesium AST 69 H Alkaline Phosphatase Lactate Dehydrogenase 635 H Total Protein Albumin Ur Specific [place] 1.038 H Urine WBC (Auto) 11.0 H U Epithel Cells (Auto) 19.0 H Ur Total Protein 24 Hr Urine Total Protein 11/13/20 11/14/20 11/14/20 17:51 05:33 11:12 WBC RBC MCH 27 L Lymph % (Auto) [place] % (Auto) 8.6 H Seg Neutrophils % Seg Neutrophils # Sodium Creatinine Calcium Magnesium 5.30 H 6.30 H AST Alkaline Phosphatase Lactate Dehydrogenase Total Protein Albumin Ur Specific [place] Urine WBC (Auto) U Epithel Cells (Auto) Ur Total Protein 24 Hr Urine Total Protein 11/14/20 11/14/20 11/14/20 16:57 17:00 23:39 WBC RBC MCH Lymph % (Auto) [place] % (Auto) Seg Neutrophils % Seg Neutrophils # Sodium Creatinine Calcium Magnesium 6.30 H 4.00 H AST Alkaline Phosphatase Lactate Dehydrogenase Total Protein Albumin Ur Specific [place] Urine WBC (Auto) U Epithel Cells (Auto) Ur Total Protein 24 Hr 3440.00 H Urine Total Protein 80 H 11/15/20 11/15/20 11/15/20 05:12 12:59 12:59 WBC 11.1 H RBC MCH 27 L Lymph % (Auto) 12.3 L [place] % (Auto) 7.6 H Seg Neutrophils % 79.8 H Seg Neutrophils # 8.9 H Sodium Creatinine Calcium Magnesium 4.00 H 3.60 H AST Alkaline Phosphatase Lactate Dehydrogenase Total Protein Albumin Ur Specific [place] Urine WBC (Auto) U Epithel Cells (Auto) Ur Total Protein 24 Hr Urine Total Protein 11/15/20 11/15/20 12:59 18:21 WBC RBC MCH Lymph % (Auto) [place] % (Auto) Seg Neutrophils % Seg Neutrophils # Sodium 136 L Creatinine Calcium 8.3 L Magnesium 2.90 H AST Alkaline Phosphatase 168 H Lactate Dehydrogenase Total Protein 6.2 L Albumin 3.1 L Ur Specific [place] Urine WBC (Auto) U Epithel Cells (Auto) Ur Total Protein 24 Hr Urine Total Protein
[2020-11-19] MEDS: PRENATAL VIT27-FE FUMARATE-FOLIC ACID VIT TAB PO SCH (11:37)
[2020-11-19] MEDS: hydrALAZINE 20 MG/1 ML INJ IV PRN ×3 (19:19→21:24)
[2020-11-20] MEDS: LACTATED RINGERS 1,000 ML IV SCH ×2 (05:05→16:44)
--- NOTE | 2020-11-20 07:52 | Progress Note ---
Assessment and Plan A: IUP at 30w3d s/p two doses of betamethasone, s/p NICU consult Preeclampsia s/p Magnesium sulfate x 24 hrs, on Labetalol 400 mg PO TID Obesity Glucose intolerance- 3 hr GTT WNL Rubella Equivocal status GBS unknown P: Continue inpatient monitoring BPP and Doppler studies q week; last study 11/16/20 EFW q 2-3 wks, Last EFW 1197g on 11/13/20 Repeat PIH panel and Type and Screen today Closely monitor clinical status Subjective - Subjective Date of service: 11/20/20 Principal diagnosis: IUP at 30w3d, Preeclampsia with severe Features, Obesity Interval history: Pt without complaints. Elevated BPs noted yesterday evening requiring multiple doses of hydralazine, however, she did not receive all three doses of her PO Labetalol yesterday. This morning, BP 140/80s. Patient reports: movement normal, no new complaints, no loss of fluid, no vaginal bleeding, no contractions Objective - Vital Signs Vital Signs: Vital Signs - 12hr 11/19/20 11/19/20 11/19/20 19:50 20:05 20:08 Pulse Rate 83 80 Blood Pressure 160/89 157/90 157/90 11/19/20 11/19/20 11/19/20 20:20 20:35 20:38 Pulse Rate 76 78 79 Blood Pressure 163/90 166/87 176/97 11/19/20 11/19/20 11/19/20 20:39 20:50 21:05 Pulse Rate 79 86 79 Blood Pressure 176/97 174/96 160/91 11/19/20 11/19/20 11/19/20 21:20 21:24 21:25 Pulse Rate 80 85 85 Blood Pressure 162/92 164/94 164/94 11/19/20 11/19/20 11/19/20 21:35 21:50 22:05 Pulse Rate 106 H 83 86 Blood Pressure 154/74 141/77 152/81 11/19/20 11/19/20 11/19/20 22:20 22:35 23:16 Pulse Rate 86 92 H 92 H Blood Pressure 144/79 148/82 146/87 11/19/20 11/20/20 11/20/20 23:46 00:16 00:46 Pulse Rate 85 78 83 Blood Pressure 123/68 129/67 126/65 07/06/21 07/06/21 07/06/21 01:16 01:46 02:16 Pulse Rate 81 77 67 Blood Pressure 137/80 141/73 141/73 11/20/20 11/20/20 11/20/20 02:47 02:50 03:06 Pulse Rate 79 74 82 Blood Pressure 166/87 154/80 155/104 11/20/20 11/20/20 11/20/20 03:20 03:35 03:50 Pulse Rate 80 82 78 Blood Pressure 150/87 158/88 157/87 11/20/20 11/20/20 11/20/20 04:05 04:20 04:32 Pulse Rate 71 71 73 Blood Pressure 150/78 160/88 147/80 11/20/20 11/20/20 11/20/20 04:52 05:04 05:22 Pulse Rate 66 63 58 L Blood Pressure 162/86 158/91 168/89 11/20/20 11/20/20 11/20/20 05:37 05:41 05:42 Pulse Rate 57 L 69 69 Blood Pressure 160/84 166/95 166/95 11/20/20 11/20/20 11/20/20 06:28 06:29 07:14 Pulse Rate 93 H 65 71 Blood Pressure 148/114 154/74 142/80 - Exam Breasts: deferred Abdomen: Present: soft (gravid, obese ). Absent: tenderness Uterus: Present: normal (gravid ) FHR: category 2 Uterine Contraction Monitor Mode: External Uterine Contraction Pattern: Absent Uterine Tone Measurement Phase: Resting Extremities: edema (2+) - Labs Labs: Abnormal Labs 11/13/20 11/13/20 11/13/20 13:50 15:50 15:50 WBC RBC 5.23 H MCH 27 L Lymph % (Auto) [place] % (Auto) Seg Neutrophils % Seg Neutrophils # Sodium Creatinine 0.5 L Calcium Magnesium AST 69 H Alkaline Phosphatase Lactate Dehydrogenase 635 H Total Protein Albumin Ur Specific [place] 1.038 H Urine WBC (Auto) 11.0 H U Epithel Cells (Auto) 19.0 H Ur Total Protein 24 Hr Urine Total Protein 11/13/20 11/14/20 11/14/20 17:51 05:33 11:12 WBC RBC MCH 27 L Lymph % (Auto) [place] % (Auto) 8.6 H Seg Neutrophils % Seg Neutrophils # Sodium Creatinine Calcium Magnesium 5.30 H 6.30 H AST Alkaline Phosphatase Lactate Dehydrogenase Total Protein Albumin Ur Specific [place] Urine WBC (Auto) U Epithel Cells (Auto) Ur Total Protein 24 Hr Urine Total Protein 11/14/20 11/14/20 11/14/20 16:57 17:00 23:39 WBC RBC MCH Lymph % (Auto) [place] % (Auto) Seg Neutrophils % Seg Neutrophils # Sodium Creatinine Calcium Magnesium 6.30 H 4.00 H AST Alkaline Phosphatase Lactate Dehydrogenase Total Protein Albumin Ur Specific [place] Urine WBC (Auto) U Epithel Cells (Auto) Ur Total Protein 24 Hr 3440.00 H Urine Total Protein 80 H 11/15/20 11/15/20 11/15/20 05:12 12:59 12:59 WBC 11.1 H RBC MCH 27 L Lymph % (Auto) 12.3 L [place] % (Auto) 7.6 H Seg Neutrophils % 79.8 H Seg Neutrophils # 8.9 H Sodium Creatinine Calcium Magnesium 4.00 H 3.60 H AST Alkaline Phosphatase Lactate Dehydrogenase Total Protein Albumin Ur Specific [place] Urine WBC (Auto) U Epithel Cells (Auto) Ur Total Protein 24 Hr Urine Total Protein 11/15/20 11/15/20 12:59 18:21 WBC RBC MCH Lymph % (Auto) [place] % (Auto) Seg Neutrophils % Seg Neutrophils # Sodium 136 L Creatinine Calcium 8.3 L Magnesium 2.90 H AST Alkaline Phosphatase 168 H Lactate Dehydrogenase Total Protein 6.2 L Albumin 3.1 L Ur Specific [place] Urine WBC (Auto) U Epithel Cells (Auto) Ur Total Protein 24 Hr Urine Total Protein
[2020-11-20 09:55] LABS: Hematocrit 36.2 % (30.3-42.9); Hemoglobin 12.2 gm/dl (10.1-14.3); Mean Corpuscular HGB Conc 34 % (30-34); Mean Corpuscular Volume 81 fl (79-97); Platelet Count 298 K/mm3 (140-440); Red Blood Count 4.47 M/mm3 (3.65-5.03); Red Cell Distribution Width 14.9 % (13.2-15.2)
[2020-11-20 10:16] LABS: Alanine Aminotransferase 18 units/L (7-56); Uric Acid 5.1 mg/dL (3.5-7.6)
[2020-11-20] MEDS: PRENATAL VIT27-FE FUMARATE-FOLIC ACID VIT TAB PO SCH (10:22)
[2020-11-20] MEDS ORDERED: hydrALAZINE 20 MG/1 ML INJ IV STA (16:37)
--- NOTE | 2020-11-20 16:43 | Progress Note ---
Assessment and Plan - Patient Problems (1) Preeclampsia Current Visit: Yes Status: Acute Plan to address problem: IV hydralazine 10 mg to be given now. If blood pressures are refractory, proceed with delivery by delivery Patient to be made NPO now Magnesium 4 mg bolus to be repeated for neuroprophylaxis Magnesium infusion to be continued to following delivery for seizure prophylaxis Continue Labetalol and adjust as needed after delivery. May consider adding Procardia as a 2nd agent if blood pressure remains in severe range Subjective - Subjective Date of service: 11/20/20 Principal diagnosis: IUP at 30w3d, Preeclampsia with severe Features, Obesity Interval history: Blood pressures remain refractory to her current Labetalol regimen with significant severe range blood pressures within the past 2 hours. Patient denies any headaches, visual changes, or RUQ pain. Patient reports: movement normal, no new complaints, no loss of fluid, no vaginal bleeding, no contractions Objective - Vital Signs Vital Signs: Vital Signs - 12hr 11/20/20 11/20/20 11/20/20 04:52 05:04 05:22 Temperature Pulse Rate 66 63 58 L Respiratory Rate Blood Pressure 162/86 158/91 168/89 Blood Pressure [Left] O2 Sat by Pulse Oximetry 11/20/20 11/20/20 11/20/20 05:37 05:41 05:42 Temperature Pulse Rate 57 L 69 69 Respiratory Rate Blood Pressure 160/84 166/95 166/95 Blood Pressure [Left] O2 Sat by Pulse Oximetry 11/20/20 11/20/20 11/20/20 06:28 06:29 07:14 Temperature Pulse Rate 93 H 65 71 Respiratory Rate Blood Pressure 148/114 154/74 142/80 Blood Pressure [Left] O2 Sat by Pulse Oximetry 11/20/20 11/20/20 11/20/20 07:59 08:15 08:21 Temperature 97.8 F Pulse Rate 63 76 71 Respiratory 18 Rate Blood Pressure 156/85 187/108 Blood Pressure 129/63 [Left] O2 Sat by Pulse 100 100 Oximetry 11/20/20 11/20/20 11/20/20 08:26 08:29 08:31 Temperature Pulse Rate 82 71 76 Respiratory Rate Blood Pressure 160/99 Blood Pressure [Left] O2 Sat by Pulse 99 100 Oximetry 11/20/20 11/20/20 11/20/20 08:36 08:41 08:46 Temperature Pulse Rate 92 H 78 99 H Respiratory Rate Blood Pressure Blood Pressure [Left] O2 Sat by Pulse 99 97 99 Oximetry 11/20/20 11/20/20 11/20/20 08:51 08:55 09:00 Temperature Pulse Rate 90 80 75 Respiratory Rate Blood Pressure 153/100 Blood Pressure [Left] O2 Sat by Pulse 98 99 Oximetry 11/20/20 11/20/20 11/20/20 09:01 09:06 09:11 Temperature Pulse Rate 84 73 78 Respiratory Rate Blood Pressure Blood Pressure [Left] O2 Sat by Pulse 99 98 98 Oximetry 11/20/20 11/20/20 11/20/20 09:15 09:21 09:25 Temperature Pulse Rate 78 84 81 Respiratory Rate Blood Pressure Blood Pressure [Left] O2 Sat by Pulse 98 98 97 Oximetry 11/20/20 11/20/20 11/20/20 09:30 09:31 09:35 Temperature Pulse Rate 81 92 H 88 Respiratory Rate Blood Pressure 157/90 Blood Pressure [Left] O2 Sat by Pulse 97 98 Oximetry 11/20/20 11/20/20 11/20/20 09:40 09:46 09:51 Temperature Pulse Rate 86 86 93 H Respiratory Rate Blood Pressure Blood Pressure [Left] O2 Sat by Pulse 99 98 98 Oximetry 11/20/20 11/20/20 11/20/20 09:56 10:01 10:06 Temperature Pulse Rate 84 82 89 Respiratory Rate Blood Pressure Blood Pressure [Left] O2 Sat by Pulse 98 99 99 Oximetry 11/20/20 11/20/20 11/20/20 10:10 10:15 10:20 Temperature Pulse Rate 85 82 77 Respiratory Rate Blood Pressure Blood Pressure [Left] O2 Sat by Pulse 98 98 98 Oximetry 11/20/20 11/20/20 11/20/20 10:26 10:30 10:35 Temperature Pulse Rate 84 79 77 Respiratory Rate Blood Pressure Blood Pressure [Left] O2 Sat by Pulse 99 100 99 Oximetry 11/20/20 11/20/20 11/20/20 10:40 10:45 10:50 Temperature Pulse Rate 76 77 83 Respiratory Rate Blood Pressure Blood Pressure [Left] O2 Sat by Pulse 99 98 99 Oximetry 11/20/20 11/20/20 11/20/20 10:55 11:00 11:05 Temperature Pulse Rate 79 76 77 Respiratory Rate Blood Pressure Blood Pressure [Left] O2 Sat by Pulse 98 97 98 Oximetry 11/20/20 11/20/20 11/20/20 11:10 11:15 11:20 Temperature Pulse Rate 77 77 74 Respiratory Rate Blood Pressure Blood Pressure [Left] O2 Sat by Pulse 97 99 98 Oximetry 11/20/20 11/20/20 11/20/20 11:25 11:30 11:35 Temperature Pulse Rate 77 71 74 Respiratory Rate Blood Pressure Blood Pressure [Left] O2 Sat by Pulse 98 98 98 Oximetry 11/20/20 11/20/20 11/20/20 11:40 11:45 11:50 Temperature Pulse Rate 81 72 78 Respiratory Rate Blood Pressure 166/97 Blood Pressure [Left] O2 Sat by Pulse 97 98 99 Oximetry 11/20/20 11/20/20 11/20/20 11:55 12:00 12:05 Temperature Pulse Rate 72 71 70 Respiratory Rate Blood Pressure Blood Pressure [Left] O2 Sat by Pulse 98 99 99 Oximetry 11/20/20 11/20/20 11/20/20 12:10 12:12 12:15 Temperature Pulse Rate 84 88 80 Respiratory Rate Blood Pressure Blood Pressure [Left] O2 Sat by Pulse 99 93 98 Oximetry 11/20/20 11/20/20 11/20/20 12:20 12:25 12:30 Temperature Pulse Rate 93 H 81 82 Respiratory Rate Blood Pressure Blood Pressure [Left] O2 Sat by Pulse 98 98 98 Oximetry 11/20/20 11/20/20 11/20/20 12:35 12:40 12:45 Temperature Pulse Rate 72 75 71 Respiratory Rate Blood Pressure Blood Pressure [Left] O2 Sat by Pulse 99 99 99 Oximetry 11/20/20 11/20/20 11/20/20 12:50 12:55 13:00 Temperature Pulse Rate 76 75 77 Respiratory Rate Blood Pressure Blood Pressure [Left] O2 Sat by Pulse 98 99 100 Oximetry 11/20/20 11/20/20 11/20/20 13:05 13:10 13:15 Temperature Pulse Rate 73 73 84 Respiratory Rate Blood Pressure Blood Pressure [Left] O2 Sat by Pulse 99 99 100 Oximetry 11/20/20 11/20/20 11/20/20 13:20 13:26 13:27 Temperature Pulse Rate 90 90 85 Respiratory Rate Blood Pressure 184/108 171/100 Blood Pressure [Left] O2 Sat by Pulse 100 Oximetry 11/20/20 11/20/20 11/20/20 13:56 13:57 13:58 Temperature Pulse Rate 69 75 75 Respiratory Rate Blood Pressure 176/101 178/97 178/97 Blood Pressure [Left] O2 Sat by Pulse Oximetry 11/20/20 11/20/20 11/20/20 14:29 14:59 15:30 Temperature Pulse Rate 69 65 62 Respiratory Rate Blood Pressure 178/98 176/93 189/103 Blood Pressure [Left] O2 Sat by Pulse Oximetry 11/20/20 11/20/20 11/20/20 15:59 16:18 16:20 Temperature 98.4 F Pulse Rate 60 78 Respiratory Rate Blood Pressure 186/98 196/104 Blood Pressure [Left] O2 Sat by Pulse Oximetry 11/20/20 16:29 Temperature Pulse Rate 67 Respiratory Rate Blood Pressure 184/101 Blood Pressure [Left] O2 Sat by Pulse Oximetry - Exam Cardiovascular: Normal S1 Lungs: Clear to auscultation FHR: auscultation normal, category 1 - Labs Labs: Abnormal Labs 11/13/20 11/13/20 11/13/20 13:50 15:50 15:50 WBC RBC 5.23 H MCH 27 L Lymph % (Auto) [place] % (Auto) Seg Neutrophils % Seg Neutrophils # Sodium Creatinine 0.5 L Calcium Magnesium AST 69 H Alkaline Phosphatase Lactate Dehydrogenase 635 H Total Protein Albumin Ur Specific [place] 1.038 H Urine WBC (Auto) 11.0 H U Epithel Cells (Auto) 19.0 H Ur Total Protein 24 Hr Urine Total Protein 11/13/20 11/14/20 11/14/20 17:51 05:33 11:12 WBC RBC MCH 27 L Lymph % (Auto) [place] % (Auto) 8.6 H Seg Neutrophils % Seg Neutrophils # Sodium Creatinine Calcium Magnesium 5.30 H 6.30 H AST Alkaline Phosphatase Lactate Dehydrogenase Total Protein Albumin Ur Specific [place] Urine WBC (Auto) U Epithel Cells (Auto) Ur Total Protein 24 Hr Urine Total Protein 11/14/20 11/14/20 11/14/20 16:57 17:00 23:39 WBC RBC MCH Lymph % (Auto) [place] % (Auto) Seg Neutrophils % Seg Neutrophils # Sodium Creatinine Calcium Magnesium 6.30 H 4.00 H AST Alkaline Phosphatase Lactate Dehydrogenase Total Protein Albumin Ur Specific [place] Urine WBC (Auto) U Epithel Cells (Auto) Ur Total Protein 24 Hr 3440.00 H Urine Total Protein 80 H 11/15/20 11/15/20 11/15/20 05:12 12:59 12:59 WBC 11.1 H RBC MCH 27 L Lymph % (Auto) 12.3 L [place] % (Auto) 7.6 H Seg Neutrophils % 79.8 H Seg Neutrophils # 8.9 H Sodium Creatinine Calcium Magnesium 4.00 H 3.60 H AST Alkaline Phosphatase Lactate Dehydrogenase Total Protein Albumin Ur Specific [place] Urine WBC (Auto) U Epithel Cells (Auto) Ur Total Protein 24 Hr Urine Total Protein 11/15/20 11/15/20 11/20/20 12:59 18:21 09:31 WBC RBC MCH 27 L Lymph % (Auto) [place] % (Auto) Seg Neutrophils % Seg Neutrophils # Sodium 136 L Creatinine Calcium 8.3 L Magnesium 2.90 H AST Alkaline Phosphatase 168 H Lactate Dehydrogenase Total Protein 6.2 L Albumin 3.1 L Ur Specific [place] Urine WBC (Auto) U Epithel Cells (Auto) Ur Total Protein 24 Hr Urine Total Protein 11/20/20 09:31 WBC RBC MCH Lymph % (Auto) [place] % (Auto) Seg Neutrophils % Seg Neutrophils # Sodium Creatinine 0.5 L Calcium Magnesium AST Alkaline Phosphatase Lactate Dehydrogenase 218 H Total Protein Albumin Ur Specific [place] Urine WBC (Auto) U Epithel Cells (Auto) Ur Total Protein 24 Hr Urine Total Protein Laboratory Results - last 24 hr 11/20/20 11/20/20 11/20/20 09:31 09:31 09:31 WBC 9.8 RBC 4.47 Hgb 12.2 Hct 36.2 MCV 81 MCH 27 L MCHC 34 RDW 14.9 Plt Count 298 Creatinine 0.5 L Estimated GFR > 60 Uric Acid 5.1 AST 17 ALT 18 Lactate Dehydrogenase 218 H Blood Type O POSITIVE Antibody Screen Negative
[2020-11-20] MEDS ORDERED: MAGNESIUM SULFATE 4 GM/100 ML BAG IV ONE ×4 (17:00→20:59)
[2020-11-20] MEDS ORDERED: BICITRA ORAL LIQD 30ML PO ONE (17:18)
[2020-11-20] MEDS ORDERED: LACTATED RINGERS 1,000 ML IV SCH ×2 (17:30→20:00)
[2020-11-20] MEDS ORDERED: hydrALAZINE 20 MG/1 ML INJ IV SCH (17:30)
[2020-11-20] MEDS ORDERED: KETOROLAC 30 MG/1 ML INJ ONE (17:39)
[2020-11-20] MEDS ORDERED: ONDANSETRON 4 MG/2 ML INJ ONE (17:39)
[2020-11-20] MEDS ORDERED: BUPIVACAINE/PF (0.5%) 5 MG/1 ML 30 ML VIAL INFILTRATI ONE (17:39)
[2020-11-20] MEDS ORDERED: MORPHINE PF 10MG/10 ML AMPULE ONE (17:40)
[2020-11-20] MEDS ORDERED: diphenhydrAMINE 50 MG/ML VIAL IV PRN (17:46)
[2020-11-20] MEDS ORDERED: NALOXONE 0.4 MG/1 ML INJ IV PRN ×2 (17:46→19:58)
[2020-11-20] MEDS ORDERED: PROMETHAZINE 25 MG TAB PO PRN (17:46)
[2020-11-20] MEDS ORDERED: NalbUPHINE 10 MG/1 ML INJ IV PRN (17:46)
--- NOTE | 2020-11-20 17:50 | Anesthesia Consultation ---
Anesthesia Consult and Med Hx Date of service: 11/20/20 - Airway Anesthetic Teeth Evaluation: Good ROM Head & Neck: Adequate Mental/Hyoid Distance: Adequate Mallampati Class: Class III Intubation Access Assessment: Possibly Difficult - Pulmonary Exam CTA: Yes - Cardiac Exam Cardiac Exam: RRR - Pre-Operative Health Status ASA Pre-Surgery Classification: ASA3, Emergency - Pulmonary Hx Smoking: No Hx Asthma: No COPD: No Hx Pneumonia: No Hx Sleep Apnea: No - Cardiovascular System Hx Hypertension: Yes (PIH, uncontrolled) Hx Heart Attack/AMI: No Hx Angina: No - Central Nervous System Hx Seizures: No Hx Psychiatric Problems: No - Gastrointestinal Hx Gastroesophageal Reflux Disease: No - Endocrine Hx Renal Disease: No Hx End Stage Renal Disease: No Hx Liver Disease: No Hx Insulin Dependent Diabetes: No Hx Non-Insulin Dependent Diabetes: No Hx Hypothyroidism: No Hx Hyperthyroidism: No - Hematic Hx Anemia: Yes Hx Sickle Cell Disease: No - Other Systems Hx Alcohol Use: No Hx Obesity: Yes
--- NOTE | 2020-11-20 17:51 | Anesthesia Day of Surgery ---
Anesthesia Day of Surgery - Day of Surgery Patient Examined: Yes Patient H&P Reviewed: Yes Patient is NPO: No (lunch @noon, surgery not able to be delayed d/t pre-e) Beta Blockers: No Cardiac Clearance: No Pulmonary Clearance: No Nitin's Test: N/A
[2020-11-20] MEDS ORDERED: OXYTOCIN DRIP 30 UNITS/500 ML BAG IV SCH ×3 (18:00→20:00)
[2020-11-20] MEDS ORDERED: ceFAZolin/Water 2 GM/20 ML 2 GM/20 ML SYRINGE IV NR (18:00)
[2020-11-20] MEDS ORDERED: FAMOTIDINE 20 MG/2 ML INJ IV ONE (18:00)
[2020-11-20] MEDS ORDERED: METOCLOPRAMIDE 10 MG/2 ML INJ IV ONE (18:00)
[2020-11-20] MEDS ORDERED: PROMETHAZINE 25 MG RECT SUPP PR PRN (18:30)
[2020-11-20] MEDS ORDERED: ONDANSETRON 4 MG/2 ML INJ IV PRN ×2 (18:30→19:59)
[2020-11-20] MEDS ORDERED: PHENYLEPHRINE/NS 1,000 MCG/10 ML SYRINGE (OR USE) IV ONE (18:35)
[2020-11-20] MEDS ORDERED: OXYTOCIN 10 UNIT/1 ML INJ ONE (18:35)
[2020-11-20] MEDS ORDERED: LACTATED RINGERS 1,000 ML ONE (18:53)
--- NOTE | 2020-11-20 19:53 | Procedure Note ---
OB Delivery Note - Delivery Date of Delivery: 11/20/20 Surgeon: KHDAAR JOSEPH - Section Preop diagnosis: other (Preeclampsia with severe features, refractory to medication ) Postop diagnosis: same section procedure: section, primary low transverse Disposition: PACU Narrative: Please see operative report. - A at 1 minute: 8 at 5 minutes: 9 Infant Gender: Female (1150g (2lb 14oz) @ 1847 pm)
--- NOTE | 2020-11-20 19:53 | Operative Report ---
Operative Report Operative Report: Date of procedure: November 20, 2020 Preoperative diagnosis: 1) IUP at 30w3d 2) Preeclampsia with severe features r efractory to medication 3) Obesity Postoperative diagnosis: Same Procedure: Primary low transverse section Surgeon: Silvana Guerrero M.D. Anesthesia: Regional Findings: 1) Viable female , Apgars 8 and 9, weight 1150 g, (2lb 14 oz) in cephalic presentation 2) Normal-appearing uterus ovaries and tubes Estimated blood loss: mL IV fluids: 1900 mL Urine output: 500 mL, clear at the end of the procedure Drains: Mcmillan to gravity Specimens: Placenta to pathology Complications:None. Counts correct x 3 Disposition: Stable to PACU Indication for procedure: Pt is a 30 year old at 30w3d presents with preeclampsia with severe features refractory to medication. The decision was made to proceed to section. Operation in detail: After the risks, benefits, alternatives and complications were explained to the patient she gave informed consent for the procedure. She was subsequently taken to the operating room where regional anesthesia was noted to be adequate. She was placed in the dorsal supine position with leftward tilt and prepped and draped in a normal sterile fashion. heart tones were noted prior to incision. A timeout was performed. A Pfannenstiel skin incision was made with the knife and carried down to the layer of the fascia with the Bovie. The fascia was incised in the midline and the fascial incision was extended bilaterally with the Bovie. The fascial incision was then stretched. The rectus muscles were then in the midline and partially transected for adequate visualization. The peritoneum was then entered bluntly. The peritoneal incision was extended with good visualization of the bladder. The peritoneal incision was then stretched. An Seamus retractor was placed. The bladder blade was then placed. The vesicouterine peritoneum was grasped with smooth pick ups and incised with Metzenbaum scissors. A bladder flap was then created digitally and the bladder blade was replaced. A transverse incision was made in the lower uterine segment with a knife and extended bilaterally with the bandage scissors. Amniotomy was performed with egress of clear fluid. head delivered with ease, followed by shoulders and body. bulb suctioned at delivery. Cord clamped and cut per NICU recommendations. handed to NICU staff in attendance. Cord blood was collected. The placenta was then delivered manually. The uterus was then exteriorized and cleared of all clots and debris. The hysterotomy was then reapproximated with 0 Monocryl in a running locked fashion. A second layer of the same suture was used in imbricating fashion. Additional figure of eights 2-0 Vicryl were used to obtain hemostasis at the left edge of the hysterotomy. The hysterotomy was inspected and hemostasis was noted. The gutters were irrigated and cleared of all clots and debris. The hysterotomy was again inspected and noted to be hemostatic. Surgicel was placed over the hysterotomy. The uterus was placed back into the peritoneal cavity. The Seamus retractor was removed. The peritoneum was reapproximated with 2-0 Vicryl in a running fashion incorporating the rectus muscles. Surgicel was placed over the rectus muscles. The fascia was reapproximated with 0 Vicryl in a running fashion. The subcutaneous tissue was reapproximated with 3-0 Vicryl in a running fashion. The skin was reapproximated with 3-0 Monocryl in a subcuticular fashion. The incision was then covered with steri strips and a pressure dressing. The procedure was then ended. The patient tolerated the procedure well and was taken to the PACU in stable condition. All instrument, lap, and needle counts were correct 3.
[2020-11-20] MEDS ORDERED: WITCH HAZEL/ GLYCERIN PAD TP PRN (19:58)
[2020-11-20] MEDS ORDERED: LANOLIN/ZINC/DIMETHICONE (LANSINOH) 7 GM TP PRN (19:58)
--- NOTE | 2020-11-20 19:58 | Progress Note ---
Spinal Anesthesia Block - Spinal Anesthesia Block Start Time: 18:01 Stop Time: 18:12 Performed by:: SERGIO FLOWER Procedure: Spinal anesthesia block is being performed for [C/S]. H&P, labs have been reviewed. Patient's questions and concerns have been answered. Informed consent has been performed. Timeout has was performed. Patient in sitting position on side of bed. Sterile prep and drape was performed. 3 mL 1% lidocaine skin wheal at L [3]-L [4]. Needle introducer advanced. 25-gauge spinal needle advanced, [+] CSF [-] blood. [Marcaine 10mg, Precedex 5mcg, and Duramorph 0.2mg] Spinal dose was given. All needles removed. Patient tolerated procedure well.
[2020-11-20] MEDS ORDERED: IBUPROFEN 800 MG TAB PO PRN (19:59)
[2020-11-20] MEDS ORDERED: oxyCODONE /ACETAMINOPHEN 5-325MG TAB PO PRN (19:59)
[2020-11-20] MEDS ORDERED: MAGNESIUM HYDROXIDE (MOM) ORAL LIQD UDC PO PRN (19:59)
[2020-11-20] MEDS ORDERED: MORPHINE 4 MG/1 ML INJ IV PRN (19:59)
[2020-11-20] MEDS ORDERED: hydrALAZINE 20 MG/1 ML INJ IV PRN (19:59)
[2020-11-20] MEDS ORDERED: CALCIUM GLUCONATE 1000 MG/10 ML INJ IV SCH (19:59)
[2020-11-20] MEDS ORDERED: D5W/LACTATED RINGERS 1,000 ML IV SCH (20:00)
[2020-11-20] MEDS: MAGNESIUM SULFATE 40GM/1000ML 40 GM/1,000 ML BAG IV SCH (20:49)
[2020-11-20] MEDS ORDERED: MORPHINE 2 MG/1 ML INJ IV PRN (20:59)
[2020-11-20] MEDS ORDERED: MAGNESIUM SULFATE 40GM/1000ML 40 GM/1,000 ML BAG IV SCH (21:00)
[2020-11-20] MEDS ORDERED: NIFEdipine XL 30 MG TAB PO SCH (22:00)
[2020-11-21] MEDS: ceFAZolin/NS 1 GM/50 ML 1 GM/50 ML BAG IV SCH ×2 (03:02→09:34)
[2020-11-21] MEDS: LACTATED RINGERS 1,000 ML IV SCH ×2 (03:03→15:48)
[2020-11-21] MEDS ORDERED: TETANUS,DIPH,PERTUSS(ACELL) VACCINE 0.5 ML SYRINGE IM ONE (06:00)
[2020-11-21] MEDS: KETOROLAC 30 MG/1 ML INJ IV SCH ×3 (08:24→15:44)
--- NOTE | 2020-11-21 08:38 | Post Anesthesia Evaluation ---
- Post Anesthesia Evaluation Patient Participated: Yes Airway Patent: Yes Stable Respiratory Function: Yes Nausea/Vomiting: No Temp > 96.8F: Yes Pain Manageable: Yes Adequeate Hydration: Yes Anesthesia Complications: No Block Receding Appropriately: Yes Patient on Ventilator: No
[2020-11-21] MEDS: PRENATAL VIT27-FE FUMARATE-FOLIC ACID VIT TAB PO SCH (09:34)
[2020-11-21] MEDS: NIFEdipine XL 30 MG TAB PO SCH ×2 (10:00→22:12)
[2020-11-21 10:06] LABS: Hematocrit 36.5 % (30.3-42.9); Hemoglobin 11.7 gm/dl (10.1-14.3)
--- NOTE | 2020-11-21 15:28 | Progress Note ---
Assessment and Plan Postop day 1 status post primary transverse section for severe preeclampsia remote from delivery. Patient seems to be improving. We will continue magnesium until 24hours. We will continue current medicine regimen regimen. Patient to be transferred to mother-baby this evening. Subjective - Subjective Date of service: 11/21/20 Principal diagnosis: IUP at 30w3d, Preeclampsia with severe Features, Obesity Interval history: POD 1 s/p ltcs for severe preeclampsia. Pt is labetalol tid 400mg and now has BP in normal range. Pt will come off magnesium this evening at 8pm. Patient reports: appetite normal, voiding normally, ambulating normally : in NICU Objective - Vital Signs Latest vital signs: Vital Signs Temp Pulse Resp BP BP Pulse Ox 11/21/20 15:19 85 94 11/21/20 15:14 85 96 11/21/20 15:09 85 95 11/21/20 15:08 86 94 11/21/20 15:04 83 95 11/21/20 14:59 90 93 11/21/20 14:57 83 94 11/21/20 14:54 83 95 11/21/20 14:49 82 95 11/21/20 14:48 81 94 11/21/20 14:45 78 136/84 11/21/20 14:44 87 96 11/21/20 14:39 81 96 11/21/20 14:34 81 96 11/21/20 14:29 80 97 11/21/20 14:26 80 140/88 11/21/20 14:25 81 140/88 11/21/20 14:24 85 96 11/21/20 14:19 82 98 11/21/20 14:14 81 98 11/21/20 14:09 86 98 11/21/20 14:07 91 H 94 11/21/20 14:04 84 98 11/21/20 14:02 84 93 11/21/20 13:59 79 98 11/21/20 13:55 83 158/107 11/21/20 13:54 93 H 95 11/21/20 13:49 83 97 11/21/20 13:47 98.0 F 78 16 155/97 98 11/21/20 13:44 86 98 11/21/20 13:43 83 155/97 11/21/20 13:42 81 161/93 11/21/20 13:39 83 97 07/0721 13:34 80 96 07/0721 13:33 85 94 07/0721 13:29 78 97 070721 13:24 80 97 07/0721 13:19 85 98 07/07/21 13:14 79 97 0707/21 13:09 90 96 0707 13:04 85 98 070721 12:59 78 97 07 12:54 84 97 07 12:53 86 91 11/21/20 12:49 81 98 07 12:44 85 98 11/21/20 12:42 81 161/89 11/21/20 12:39 79 97 11/21/20 12:34 79 98 11/21/20 12:32 94 H 86 11/21/20 12:29 83 97 11/21/20 12:24 74 97 11/21/20 12:19 83 96 11/21/20 12:14 78 96 11/21/20 12:09 83 97 07 12:04 79 97 07 11:59 77 96 07 11:54 86 97 07 11:49 81 96 07 11:45 98.0 F 81 16 137/82 96 07 11:44 79 97 0707/ 11:41 78 140/85 07 11:40 81 137/83 07 11:39 91 H 96 07 11:34 85 96 07 11:29 82 96 07 11:24 83 97 0721 11:19 79 96 070721 11:14 80 97 0707 11:09 78 97 0707 11:04 80 96 0721 10:59 78 97 0721 10:54 77 96 0721 10:49 85 97 07/21 10:44 79 98 0721 10:39 77 96 0721 10:34 83 98 07/07/21 10:29 77 96 070721 10:24 85 96 070721 10:23 96 H 93 07 10:19 95 H 97 07/07/21 10:14 85 96 11/21/20 10:13 86 138/76 11/21/20 10:09 85 98 11/21/20 10:08 92 H 93 11/21/20 10:04 92 H 98 11/21/20 09:59 85 98 11/21/20 09:54 86 98 11/21/20 09:49 86 97 11/21/20 09:47 98 F 94 H 16 133/78 11/21/20 09:44 91 H 99 11/21/20 09:42 18 11/21/20 09:39 97 H 97 11/21/20 09:34 81 137/82 97 11/21/20 09:29 88 97 11/21/20 09:24 88 97 11/21/20 09:19 94 H 133/78 97 11/21/20 09:14 87 97 11/21/20 09:09 96 H 96 11/21/20 09:04 95 H 146/93 96 11/21/20 08:59 91 H 96 11/21/20 08:54 90 97 11/21/20 08:49 91 H 153/97 97 11/21/20 08:48 98 H 94 11/21/20 08:44 97 H 97 11/21/20 08:39 98 H 96 11/21/20 08:34 97 H 136/84 96 11/21/20 08:30 92 H 142/90 11/21/20 08:29 93 H 97 11/21/20 08:26 88 142/90 11/21/20 08:24 92 H 97 11/21/20 08:19 101 H 153/96 97 11/21/20 08:14 88 97 11/21/20 08:09 88 98 11/21/20 08:08 98 F 92 H 18 166/98 98 11/21/20 08:04 85 163/104 98 11/21/20 08:01 85 166/98 11/21/20 07:59 89 98 11/21/20 07:54 90 98 11/21/20 07:49 101 H 97 11/21/20 07:48 89 165/103 11/21/20 07:44 98 H 97 11/21/20 07:39 89 98 11/21/20 07:37 92 H 162/94 11/21/20 07:34 78 98 07 07:29 87 99 11/21/20 07:27 81 176/94 11/21/20 07:24 79 99 11/21/20 07:19 83 98 11/21/20 07:14 82 98 11/21/20 07:09 83 97 11/21/20 07:04 84 96 11/21/20 06:59 84 97 11/21/20 06:57 79 155/92 11/21/20 06:54 85 97 11/21/20 06:49 86 97 07 06:44 87 96 11/21/20 06:39 85 96 11/21/20 06:34 84 97 11/21/20 06:29 81 97 11/21/20 06:27 81 150/89 11/21/20 06:24 81 98 11/21/20 06:19 81 97 11/21/20 06:14 79 97 11/21/20 06:09 82 97 11/21/20 06:04 85 98 11/21/20 05:59 85 98 11/21/20 05:58 90 147/96 11/21/20 05:54 92 H 98 11/21/20 05:51 84 94 11/21/20 05:49 83 96 11/21/20 05:44 84 97 11/21/20 05:39 81 97 11/21/20 05:34 83 98 11/21/20 05:29 83 96 07 05:27 82 148/85 07 05:24 85 98 11/21/20 05:19 83 98 11/21/20 05:14 85 96 11/21/20 05:09 82 96 11/21/20 05:04 91 H 97 11/21/20 04:59 87 98 07 04:57 81 149/90 07 04:54 83 98 07 04:49 81 96 11/21/20 04:44 86 98 07 04:39 88 99 11/21/20 04:34 85 98 07 04:29 89 98 0707 04:27 83 147/83 07 04:24 85 98 07 04:19 80 98 12/05 04:14 82 98 07/07/21 04:09 91 H 98 11/21/20 04:04 95 H 98 11/21/20 03:59 88 98 11/21/20 03:57 81 136/87 11/21/20 03:54 82 98 11/21/20 03:49 81 98 11/21/20 03:44 83 98 11/21/20 03:39 81 98 11/21/20 03:34 82 98 11/21/20 03:29 83 98 11/21/20 03:27 83 153/87 11/21/20 03:24 84 98 11/21/20 03:19 86 97 11/21/20 03:14 83 98 11/21/20 03:09 83 98 11/21/20 03:04 81 97 11/21/20 02:59 84 97 11/21/20 02:57 83 150/89 11/21/20 02:54 86 97 11/21/20 02:49 83 97 11/21/20 02:44 81 98 11/21/20 02:39 79 97 11/21/20 02:34 83 97 11/21/20 02:29 89 97 11/21/20 02:27 83 146/85 11/21/20 02:24 81 98 11/21/20 02:19 87 98 11/21/20 02:14 80 98 11/21/20 02:09 82 97 11/21/20 02:04 83 98 11/21/20 01:59 82 97 11/21/20 01:57 81 146/85 11/21/20 01:54 85 97 11/21/20 01:49 82 97 11/21/20 01:44 81 97 11/21/20 01:39 82 97 11/21/20 01:34 83 96 11/21/20 01:29 89 96 07 01:27 83 143/83 11/21/20 01:24 84 97 11/21/20 01:19 82 97 11/21/20 01:14 80 97 11/21/20 01:09 80 97 11/21/20 01:04 78 96 11/21/20 00:59 78 97 11/21/20 00:57 83 146/84 11/21/20 00:54 88 97 11/21/20 00:49 84 96 11/21/20 00:44 80 97 11/21/20 00:39 79 96 11/21/20 00:34 76 97 11/21/20 00:29 93 H 97 11/21/20 00:27 80 137/77 11/21/20 00:24 89 97 11/21/20 00:19 82 97 11/21/20 00:14 79 97 11/21/20 00:09 75 96 11/21/20 00:04 80 96 11/20/20 23:59 75 97 11/20/20 23:57 79 143/84 11/20/20 23:54 78 96 11/20/20 23:49 77 96 11/20/20 23:44 90 96 11/20/20 23:39 89 96 11/20/20 23:34 75 97 11/20/20 23:29 80 97 11/20/20 23:24 73 149/90 11/20/20 23:15 80 141/81 11/20/20 23:00 75 141/84 11/20/20 22:45 74 145/88 11/20/20 22:30 74 146/89 11/20/20 22:16 75 165/98 11/20/20 22:06 75 189/104 11/20/20 22:00 75 189/104 11/20/20 21:42 71 173/105 11/20/20 21:00 98 F 64 18 156/97 98 11/20/20 20:45 67 18 151/94 98 11/20/20 20:30 65 18 159/102 97 11/20/20 20:15 70 17 156/101 97 11/20/20 20:00 66 18 152/97 97 11/20/20 19:55 62 18 151/88 98 11/20/20 19:50 97.9 F 69 18 140/96 98 11/20/20 17:43 86 98 06 17:38 85 98 06 17:33 84 169/102 98 06 17:29 85 164/96 11/20/20 17:28 87 98 06 17:23 80 98 06 17:18 88 98 11/20/20 17:13 79 98 11/20/20 17:12 72 165/95 11/20/20 17:11 75 181/107 11/20/20 17:08 81 98 11/20/20 17:03 67 98 11/20/20 16:59 68 172/103 11/20/20 16:58 78 98 11/20/20 16:53 71 98 11/20/20 16:49 70 173/100 11/20/20 16:48 72 98 11/20/20 16:33 67 184/101 11/20/20 16:29 67 184/101 11/20/20 16:20 98.4 F 11/20/20 16:18 78 196/104 11/20/20 15:59 60 186/98 11/20/20 15:30 62 189/103 Intake and Output 11/21/20 11/21/20 11/21/20 06:59 14:59 22:59 Intake Total 1050 Output Total 650 2500 Balance 400 -2500 Intake: IV 1050 ANCEF/NS 1 GM/50 ML 1 gm 50 In 50 ml @ 100 mls/hr IV Q8H [facility] Rx#:[id number] Lactated Ringers 1,000 ml 1000 @ 125 mls/hr IV DIRECT [facility] Rx#:[id number] Output: Urine 650 2500 Indwelling Catheter 250 2100 Uretheral ([place]) 400 400 Other: Total, Output Amount 250 650 - Exam Abdomen: Present: normal appearance, soft Extremities: Present: normal Incision: Present: normal, dry, intact, dressed - Labs Labs: Abnormal lab results 11/21/20 11/21/20 11/21/20 Range/Units 00:32 05:58 12:56 Magnesium 4.40 H 4.80 H 5.70 H (1.7-2.3) mg/dL
[2020-11-21] MEDS ORDERED: MEASLES, MUMPS & RUBELLA 12,500 UNIT/0.5 ML VACCINE SUB-Q ONE (20:00)
--- NOTE | 2020-11-22 08:52 | Progress Note ---
Assessment and Plan - Patient Problems (1) Status post primary low transverse section Current Visit: Yes Status: Acute Plan to address problem: Continue routine PP orders Keep incision clean and dry, remove dressing today Anticipate d/c home tomorrow if stable (2) Preeclampsia Current Visit: Yes Status: Acute Plan to address problem: Continue to monitor B/P Continue current anti-hypertensive meds Subjective - Subjective Date of service: 11/22/20 Principal diagnosis: S/P primary C/S; POD#2; Preeclampsia with severe Features, Obesity Interval history: Pt is a 30 year old -[place] MARINA 01/26/21 at 29w3d presents from the office with finding of elevated blood pressure 160-170/80s in the office. She denies headache, blurry vision, right upper quadrant pain, scotomata presently. She has had care at [facility] complicated by obesity, glucose intolerance with collection of 3 hr glucose tolerance test at today's office visit, limited anatomy scan, and Rubella Equivocal status. Her GB S status is unknown. Preeclampsia with severe features refractory to medication. The decision was made to proceed to section. Patient reports: appetite normal, voiding normally, pain well controlled (with medications), flatus, ambulating normally, no bowel movement Mathews: in NICU, bottle feeding Objective - Vital Signs Latest vital signs: Vital Signs Temp Pulse Resp BP BP Pulse Ox 11/22/20 07:45 98.2 F 91 H 20 140/95 97 11/22/20 04:36 99.4 F 91 H 18 143/90 98 11/22/20 01:23 98.2 F 89 18 156/83 98 11/21/20 22:11 86 18 159/95 97 11/21/20 20:17 97.9 F 89 18 161/89 99 11/21/20 19:59 89 161/89 96 11/21/20 19:55 89 161/89 94 11/21/20 19:54 96 H 96 11/21/20 19:49 86 94 11/21/20 19:48 85 93 11/21/20 19:44 81 93 11/21/20 19:43 81 94 11/21/20 19:41 82 161/84 11/21/20 19:39 82 93 11/21/20 19:38 82 94 11/21/20 19:34 85 96 11/21/20 19:30 82 94 11/21/20 19:29 83 95 11/21/20 19:24 83 96 11/21/20 19:19 84 96 11/21/20 19:14 85 96 11/21/20 19:09 83 97 11/21/20 19:04 83 97 11/21/20 18:59 85 94 11/21/20 18:54 85 97 11/21/20 18:49 83 96 11/21/20 18:47 110 H 94 11/21/20 18:44 86 97 11/21/20 18:41 82 148/88 11/21/20 18:39 85 97 11/21/20 18:34 84 98 11/21/20 18:29 86 97 11/21/20 18:24 92 H 98 11/21/20 18:19 89 99 11/21/20 18:14 96 H 97 11/21/20 18:09 86 98 11/21/20 18:08 98.0 F 11/21/20 18:04 92 H 98 11/21/20 17:59 90 99 11/21/20 17:56 87 148/88 11/21/20 17:54 94 H 99 11/21/20 17:49 99 H 96 11/21/20 17:44 86 97 11/21/20 17:41 83 136/84 11/21/20 17:39 85 97 11/21/20 17:34 85 97 11/21/20 17:29 79 97 11/21/20 17:24 83 98 11/21/20 17:20 94 H 93 11/21/20 17:19 89 98 11/21/20 17:14 94 H 97 11/21/20 17:09 88 98 11/21/20 17:07 85 91 11/21/20 17:04 80 97 11/21/20 16:59 82 97 11/21/20 16:54 78 98 11/21/20 16:49 77 98 11/21/20 16:44 83 98 11/21/20 16:42 74 94 11/21/20 16:41 77 138/86 11/21/20 16:39 75 97 11/21/20 16:34 77 97 11/21/20 16:29 74 98 11/21/20 16:24 81 97 11/21/20 16:19 81 95 11/21/20 16:14 76 97 11/21/20 16:09 77 97 11/21/20 16:04 87 98 11/21/20 15:59 80 96 11/21/20 15:55 77 12 144/97 95 11/21/20 15:54 83 144/97 97 11/21/20 15:49 82 97 11/21/20 15:44 85 16 95 11/21/20 15:41 85 135/86 11/21/20 15:39 86 95 11/21/20 15:34 81 94 11/21/20 15:33 82 94 11/21/20 15:29 82 95 11/21/20 15:27 82 94 11/21/20 15:24 92 H 93 11/21/20 15:22 82 94 11/21/20 15:19 85 94 11/21/20 15:14 85 96 11/21/20 15:09 85 95 11/21/20 15:08 86 94 11/21/20 15:04 83 95 11/21/20 14:59 90 93 11/21/20 14:57 83 94 11/21/20 14:54 83 95 11/21/20 14:49 82 95 11/21/20 14:48 81 94 11/21/20 14:45 78 136/84 11/21/20 14:44 87 96 11/21/20 14:39 81 96 11/21/20 14:34 81 96 11/21/20 14:29 80 97 11/21/20 14:26 80 140/88 11/21/20 14:25 81 140/88 11/21/20 14:24 85 96 11/21/20 14:19 82 98 11/21/20 14:14 81 98 11/21/20 14:09 86 98 11/21/20 14:07 91 H 94 11/21/20 14:04 84 98 11/21/20 14:02 84 93 11/21/20 13:59 79 98 11/21/20 13:55 83 158/107 11/21/20 13:54 93 H 95 11/21/20 13:49 83 97 11/21/20 13:47 98.0 F 78 16 155/97 98 11/21/20 13:44 86 98 07/07/21 13:43 83 155/97 07/07/21 13:42 81 161/93 07/07/21 13:39 83 97 07/07/21 13:34 80 96 07/07/21 13:33 85 94 07/07/21 13:29 78 97 07/07/21 13:24 80 97 07/07/21 13:19 85 98 07/07/21 13:14 79 97 0707/21 13:09 90 96 0707/21 13:04 85 98 07/07/21 12:59 78 97 07/07/21 12:54 84 97 07/07/21 12:53 86 91 0721 12:49 81 98 07/07/21 12:44 85 98 07/21 12:42 81 161/89 07/ 12:39 79 97 07/21 12:34 79 98 0707/21 12:32 94 H 86 07 12:29 83 97 07 12:24 74 97 0707/21 12:19 83 96 07/07/21 12:14 78 96 0707/ 12:09 83 97 07/07/ 12:04 79 97 07/07/21 11:59 77 96 07/07/21 11:54 86 97 0707/21 11:49 81 96 07/07/21 11:45 98.0 F 81 16 137/82 96 07/07/21 11:44 79 97 07/07/21 11:41 78 140/85 07/07/21 11:40 81 137/83 0707/21 11:39 91 H 96 /07/21 11:34 85 96 07/07/21 11:29 82 96 07/07/21 11:24 83 97 07/07/21 11:19 79 96 07/07/21 11:14 80 97 07/07/21 11:09 78 97 07/07/21 11:04 80 96 07/07/21 10:59 78 97 07/07/21 10:54 77 96 07/07/21 10:49 85 97 07/07/21 10:44 79 98 07/07/21 10:39 77 96 07/07/21 10:34 83 98 07/07/21 10:29 77 96 07/07/21 10:24 85 96 11/21/20 10:23 96 H 93 11/21/20 10:19 95 H 97 11/21/20 10:14 85 96 11/21/20 10:13 86 138/76 11/21/20 10:09 85 98 11/21/20 10:08 92 H 93 11/21/20 10:04 92 H 98 11/21/20 09:59 85 98 11/21/20 09:54 86 98 11/21/20 09:49 86 97 11/21/20 09:47 98 F 94 H 16 133/78 11/21/20 09:44 91 H 99 11/21/20 09:42 18 11/21/20 09:39 97 H 97 11/21/20 09:34 81 137/82 97 11/21/20 09:29 88 97 11/21/20 09:24 88 97 11/21/20 09:19 94 H 133/78 97 11/21/20 09:14 87 97 11/21/20 09:09 96 H 96 11/21/20 09:04 95 H 146/93 96 11/21/20 08:59 91 H 96 11/21/20 08:54 90 97 Intake and Output 11/21/20 11/22/20 11/22/20 23:59 07:59 15:59 Intake Total 240 120 Output Total 2300 1400 Balance -2060 -1280 Intake: Oral 240 Intake, Free Water 120 Output: Urine 2300 1400 Indwelling Catheter 1800 Void 500 1400 Other: Total, Intake Amount 240 Total, Output Amount 500 300 - Exam Breasts: Present: normal Cardiovascular: Present: Regular rate Lungs: Present: Normal air movement Abdomen: Present: soft, tenderness Uterus: Present: firm, fundal height below umbilicus (U-2) Extremities: Present: normal Deep Tendon Reflex Grade: Normal +2 Incision: Present: dressed (no shadow drainage or bleeding noted) - Labs Labs: Abnormal lab results 11/21/20 11/21/20 Range/Units 12:56 17:43 Magnesium 5.70 H 5.50 H (1.7-2.3) mg/dL
[2020-11-22] MEDS: PRENATAL VIT27-FE FUMARATE-FOLIC ACID VIT TAB PO SCH (10:03)
[2020-11-22] MEDS: NIFEdipine XL 30 MG TAB PO SCH ×2 (10:03→23:13)
--- NOTE | 2020-11-23 07:27 | Progress Note ---
Assessment and Plan A: POD#3 s/p primary section at 30 wks Preeclampsia s/p Magnesium sulfate x 24 hrs, on Labetalol 400 mg PO TID and Procardia XL 30 mg BID P: Routine care Abdominal Binder MMR prior to discharge RTC within 7 days for BP check Subjective - Subjective Date of service: 11/23/20 Principal diagnosis: IUP at 30wks, s/p primary , severe preeclampsia, obesity Interval history: Pt without complaints. Pumping breast milk. Passing flatus and had a bowel movement. Minimal lochia. Patient reports: appetite normal, voiding normally, pain well controlled, flatus, bowel movement, ambulating normally : in NICU Objective - Vital Signs Latest vital signs: Vital Signs Temp Pulse Resp BP Pulse Ox 11/23/20 05:00 98.1 F 93 H 18 141/80 99 11/23/20 00:45 97.9 F 89 18 143/85 99 11/23/20 00:13 18 11/22/20 23:13 98.7 F 97 H 18 151/95 99 11/22/20 19:55 100 H 138/87 11/22/20 16:05 97.8 F 100 H 18 123/81 96 11/22/20 13:16 98.2 F 96 H 16 123/87 97 11/22/20 07:45 98.2 F 91 H 20 140/95 97 Intake and Output 11/22/20 11/23/20 11/23/20 22:59 06:59 14:59 Intake Total 600 420 Balance 600 420 Intake: Oral 600 Intake, Free Water 420 Other: Total, Intake Amount 240 # Voids Void 1 2 # Bowel Movements 1 - Exam Breasts: Present: deferred Abdomen: Present: soft (obese ). Absent: distention, tenderness Uterus: Present: fundal height below umbilicus Extremities: Present: edema (1+) Incision: Present: intact (with steristrips )
--- NOTE | 2020-11-23 07:33 | Discharge Summary ---
Providers - Providers Date of Admission: 11/13/20 14:54 Date of discharge: 11/23/20 Attending physician: KHADAR GUERRERO 11/14/20 07:00 Consult to Physician [CONS] Routine Comment: Consulting Provider: JORDAN MADSEN Physician Instructions: Reason For Exam: IUP at 29wks, Gestational HTN vs Preeclampsia 11/14/20 07:36 Consult to Physician [CONS] Routine Comment: Consulting Provider: OTILIO FREEDMAN Physician Instructions: Reason For Exam: 29 wks, preclampsia 11/20/20 19:59 Consult to Histology Aide [CONS] Routine Reason For Exam: Primary care physician: KHADAR GUERRERO Hospitalization Reason for admission: other (elevated blood pressure ) Procedure: section, primary low transverse Procedure details: Please see operative note. Incision: intact (with steristrips ) Other procedures: none complications: none Discharge diagnosis: delivery baby: female Hospital course: The patient was admitted to the hospital at 29 weeks secondary to elevated blood pressures. She underwent serial blood pressure monitoring and a 24-hour urine collection which revealed a diagnosis of preeclampsia with severe features. She was started on multiple antihypertensives but her blood pressure became refractory to medication so she underwent a primary section which she tolerated well. She received magnesium sulfate for 24 hours after delivery. The remainder of her postoperative course was uncomplicated and she met discharge criteria on postoperative day #3. She will follow-up within 7 days in the office with Dr. Guerrero for blood pressure check. Condition at discharge: Stable Disposition: DC-01 TO HOME OR SELFCARE - Discharge Diagnoses (1) Obesity (BMI 30-39.9) Status: Acute (2) delivery Status: Acute (3) Preeclampsia Status: Acute (4) Status post primary low transverse section Status: Acute Plan - Provider Discharge Summary Activity: routine, no sex for 6 weeks, no heavy lifting 4 weeks, no strenuous exercise Diet: routine Instructions: routine Additional instructions: [] Smoking cessation referral if applicable(refer to patient education folder for contact #) [] Refer to [facility] Booklet Call your doctor immediately for: * Fever > 100.5 * Heavy vaginal bleeding ( >1 pad per hour) * Severe persistent headache * Shortness of breath * Reddened, hot, painful area to leg or breast * Drainage or odor from incision. * Keep incision clean and dry at all times and follow doctor's instructions regarding bathing/showering - Follow up plan Follow up: KHADAR GUERRERO MD [Primary Care Provider] - 7 Days
[2020-11-23] MEDS ORDERED: MEASLES, MUMPS & RUBELLA 12,500 UNIT/0.5 ML VACCINE SUB-Q ONE (08:47)
[2020-11-23] MEDS: PRENATAL VIT27-FE FUMARATE-FOLIC ACID VIT TAB PO SCH (09:23)
[2020-11-23] MEDS: NIFEdipine XL 30 MG TAB PO SCH (09:23)
[2020-11-23 11:20] VITALS: BP 122/84
== END 2020-11-23 11:45 | disposition home or self-care (01) | DRG 788 ==
LOC: TRG 12:53 → APU 12:54 → TRG 13:46 → APU 14:54 → OBSVTOIN 14:54 → LD 16:14 → OB 11-21 20:39
PROVIDERS: ADMIT Obstetrics & Gynecology; ATTEND Obstetrics & Gynecology
PROC: 10D00Z1 Extraction of Products of Conception, Low, Open Approach (ICD-10-PCS; principal; 2020-11-20)
PROC: 3E0234Z Introduction of Serum, Toxoid and Vaccine into Muscle, Percutaneous Approach (ICD-10-PCS; 2020-11-21)
DX: O14.14 Severe pre-eclampsia complicating childbirth (principal); O13.4 Gestational [pregnancy-induced] hypertension without significant proteinuria, complicating childbirth; Z3A.30 30 weeks gestation of pregnancy; Z37.0 Single live birth; Z20.822 Contact with and (suspected) exposure to COVID-19; Z23 Encounter for immunization; O99.62 Diseases of the digestive system complicating childbirth; O99.214 Obesity complicating childbirth; E66.9 Obesity, unspecified; K21.9 Gastro-esophageal reflux disease without esophagitis; E74.39 Other disorders of intestinal carbohydrate absorption; O99.284 Endocrine, nutritional and metabolic diseases complicating childbirth; O36.5930 Maternal care for other known or suspected poor fetal growth, third trimester, not applicable or unspecified; O99.02 Anemia complicating childbirth; D64.9 Anemia, unspecified; O60.14X0 Preterm labor third trimester with preterm delivery third trimester, not applicable or unspecified
CPT/HCPCS: 36415; 76805; 76815; 76816; 76819; 76820; 80053; 81001; 82565; 83615; 83735; 84156; 84450; 84460; 84550; 85014; 85018; 85025; 85027; 86850; 86900; 86901; 87086; 88307; 90707; 99211; G0378; G0463; J0360; J0690; J0702; J1885; J2274; J2370; J2405; J2590; J3475; J3490; J7120; U0003